=== PATIENT | female | born 1940 ===

== ENCOUNTER 2023-06-05 16:02 | Emergency (ER) | payer OTHER ==
[2023-06-05] MEDS ORDERED: NA CHLORIDE 0.9% 1,000 ML ONE ×2 (16:49→21:16)
[2023-06-05] MEDS ORDERED: ONDANSETRON 4 MG/2 ML VIAL ONE ×2 (16:57→21:16)
--- OUTSIDE RECORDS SUMMARY | 2023-06-05 17:07 | XMS REPORT | Continuity of Care Document ---
:1940 Author Organization [facility] t Address [address] [place] [address] [place] [id number] Care Team Providers Name Role Phone Unavailable Unavailable Unavailable Payers Payer Name Policy Type Policy Number Effective Date Expiration Date S ource Problems This patient has no known problems. Allergies, Adverse Reactions, Alerts Allergy Allergy Status Severity Reaction(s) Onset Inactive Treating Comm ents Source Name Type Date Date Clinician benny DA Active U [facility] 07-23 Mahendra 00:00: d 00 [facility] Medications This patient has no known medications. Procedures This patient has no known procedures. Results Test Description Test Time Test Comments Results Result Comments Source SURG 2019-07-26 16:18:00 RUN DATE: 07/26/19 [facility] Luiz [place] - LAB PAGE 1 RUN TIME: 1618 Specimen Inquiry RUN USER: INTERFACE PATIENT: ALANNA KIRAN LOC: IDA U #: [id number] AGE/SX: 79/F ROOM: RE07/25/19[facility] DR: Gianfranco Guadarrama MD : 42 BED: DIS: STATUS: [facility] TLOC: SPEC #: [id number] RECD: 07/25/19 STATUS: [facility] #: [id number] LOIS: 07/25/19 [facility] DR: Gianfranco Guadarrama MD ENTERED: 07/25/19 SP TYPE: SURG OTHR DR: Jayesh Hansen Jr, MD ORDERED: SURG PATH LVL 4 COPIES TO: Jayesh Hansen Jr, MD [address] [place] [address] [address] [place] [address] Gianfranco Guadarrama MD [address] [place] [address] HISTOLOGY: TISSUE ID BLK PCS MARY BETH LEV PROCEDURE DISPOSITION ____ ___ ___ ___ VULVA, NOS A 1 1 PROCEDURES: SURG PATH LVL 4 (07/25/19) TISSUES: A. 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 Received in formalin is a ireland-brown shave biopsy specimen, 0.2 x 0.1 x less than 0.1 cm. On the surface there is a ireland lesion, 0.3 x 0.1 cm, closely abuts from peripheral margin. The resection margin is inked blue. The entire specimen submitted as A. tarun/nr CONTINUED ON NEXT PAGE RUN DATE: 07/26/19 [facility] PAGE 2 RUN TIME: 1618 Specimen Inquiry RUN USER: INTERFACE SPEC #: [facility]:[id number] PATIENT: ALANNA KIRAN #[id number] (Continued)--------- --- GROSS DESCRIPTION (Continued) Grossing performed at [facility] Pathology, [address] [facility], [address], [place], [place] [address]. [employer] Panels Trimmer: Mitchel Ferraro M.D. MICROSCOPIC DESCRIPTION Vulva. Sections demonstrate soft tissue with chronic inflammation. No definite mucosal surface is identified. The specimen has the appearance of a segment of soft tissue with denuded mucosa. No dysplasia or malignancy is identified.--------- --- Signed SIGNATURE ON FILE Jimmy Kaur 07/26/19 1618 END OF REPORT BASIC METABOLIC PANEL 2019-07-23 11:34:00 Test Item Value Reference Range Interpretation Comme nts SODIUM (test code = NA) 141 mmol/L 134-147 N POTASSIUM (test code = K) 3.8 mmol/L 3.4-5.0 N CHLORIDE (test code = CL) 107 mmol/L 100-108 N CARBON DIOXIDE (test code = CO2) 29 mmol/L 21-32 N ANION GAP (test code = GAP) 5.0 GAP calc 4.0-15.0 N GLUCOSE (test code = GLU) 85 MG/DL 70-110 N BLOOD UREA NITROGEN (test code = BUN) 12 MG/DL 7-18 N GLOMERULAR FILTRATION RATE (test code = GFR) >=60 max estimate estG FR >60 CREATININE (test code = CREAT) 0.8 MG/DL 0.6-1.0 N CALCIUM (test code = CA) 8.8 MG/DL 8.5-10.1 N BASIC METABOLIC [id number] 11:31:00 Test Item Value Reference Range Interpretation Comments SODIUM (test code = NA) 141 mmol/L 134-147 N POTASSIUM (test code = K) 3.8 mmol/L 3.4-5.0 N CHLORIDE (test code = CL) 107 mmol/L 100-108 N CARBON DIOXIDE (test code = CO2) 29 mmol/L 21-32 N ANION GAP (test code = GAP) 5.0 GAP calc 4.0-15.0 N GLUCOSE (test code = GLU) 85 MG/DL 70-110 N BLOOD UREA NITROGEN (test code = 12 MG/DL 7-18 N BUN) GLOMERULAR FILTRATION RATE (test estGFR >60 code = GFR) CREATININE (test code = CREAT) MG/DL 0.6-1.0 CALCIUM (test code = CA) 8.8 MG/DL 8.5-10.1 N CBC W/AUTO [id number] 11:24:00 Test Item Value Reference Range Interpretation Comments WHITE BLOOD CELL (test code = 6.0 K/mm3 3.5-11.0 N WBC) RED BLOOD CELL (test code = RBC) 4.32 M/mm3 4.70-6.10 L HEMOGLOBIN (test code = HGB) 12.9 G/DL 10.4-14.9 N HEMATOCRIT (test code = HCT) 39.3 % 31.5-44.1 N MEAN CELL VOLUME (test code = 91.0 Fl 84.5-98.6 N MCV) MEAN CELL HGB (test code = MCH) 29.9 pg 27.0-34.2 N MEAN CELL HGB CONCETRATION (test 32.8 G/DL 31.5-34.0 N code = MCHC) RED CELL DISTRIBUTION WIDTH (test 13.4 SD 11.5-14.5 N code = RDW) PLATELET COUNT (test code = PLT) 226.0 K/mm3 150-450 N MEAN PLATELET VOLUME (test code = 9.10 fL 7.0-10.5 N MPV) NEUTROPHIL % (test code = NT%) 69.5 % 40-76 N LYMPHOCYTE % (test code = LY%) 19.2 % 20.5-51.1 L MONOCYTE % (test code = MO%) 8.8 % 1.7-9.3 N EOSINOPHIL % (test code = EO%) 2.2 % 0.0-6.0 N BASOPHIL % (test code = BA%) 0.3 % 0.0-2.0 N NEUTROPHIL # (test code = NT#) 4.16 K/mm3 1.8-7.6 N LYMPHOCYTE # (test code = LY#) 1.2 K/mm3 0.6-3.2 N MONOCYTE # (test code = MO#) 0.5 K/mm3 0.3-1.1 N EOSINOPHIL # (test code = EO#) 0.1 K/mm3 0.0-0.4 N BASOPHIL # (test code = BA#) 0.0 K/mm3 0.0-0.1 N MANUAL DIFF REQUIRED (test code = NO DIFF/SCN CRITERIA MDLUIS FERNANDO) Notes Date/Time Note Provider Source 2019-07-25 09:19:00-00:00 [facility] ([facility]) Post Anesthesia Evaluation REPORT#:[id number] REPORT STATUS: Signed DATE:07/25/19 TIME:918 PATIENT: ALANNA KIRAN UNIT #: [id number] ROOM/BED: : 42 AGE: 79 SEX: F ATTEND: Mauricio Guadarrama MD ADM AUTHOR: Lisa Plunkett CRNA * ALL edits or amendments must be made on the [employer]/computer document * Post Anesthesia Evaluation Anes. changes from pre-op eval ORM Surgeries: Surgery Date and Time: 07/25/2019 08 Primary Procedure: VAGINOSCOPY Secondary Procedures: SIMPLE VULVECTOMY CYSTOSCOPY Anesthetic: general LMA Date: 07/25/19 Level of consciousness: no change, patient awake , able to answer questions, participate in this eval. Vital signs: BP: [ ] HR: [ ] bpm RR: [ ] / min SP02: [ ] %Vital Signs: Date Time Temp Pulse Resp B/P B/P Pulse O2 O2 F low FiO2 Mean Ox Delivery Rate 07/25 0910 76 8 137/64 90 Room air 07/25 0905 89 17 146/61 95 Room air 07/25 0900 90 22 112/56 93 Room air 07/25 0855 36.9 83 8 120/56 99 Room air 10.0000 00 07/25 0845 84 2 115/56 98 Simple 10.661623 mask 07/25 0843 Simple 10.342026 mask 07/25 0840 80 0 115/56 95 Simple 10.341557 mask 07/25 0837 36.9 87 12 118/58 97 Simple 10.75154 0 mask 07/25 0643 36.8 62 16 142/69 98 Room air Cardiovascular: no change, CV system stable, vit al signs stable Respiratory/Airway: respiratory system stable, m aintains without support Pain: adequately controlled Hydration: adequate Temp status: normothermic Presence of N/V: no Anesthesia complications: no Other changes requiring f/u: none Conclusions: no apparent anes. 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 POSTOPERATIVE DIAGNOSES: Lichen planus of the vu lva L43.0, mixed urinary incontinence N39.46. PROCEDURES: Simple vulvectomy 65251, vaginoscopy 15969, cystoscopy 91975. SURGEON: Gianfranco Guadarrama MD CAFETERIA COOK: Kerrie Haines, licensed first grade teacher. ANESTHESIA: LMA biopsy vulva. COMPLICATIONS: None. DRAINS: None. ESTIMATED BLOOD LOSS: None. FLUIDS: 500 mL of crystalloid. URINE OUTPUT: 100 mL. FINDINGS: Completely closed introitus with separ ation and initial vaginal length 1 cm, final vaginal length 4 cm. No bleed ing or hematoma formation. Normal cystoscopy, vaginoscopy showing no suspic ious malignant findings. PROCEDURE IN DETAIL: The patient was taken to e operating room where LMA anesthesia was found to be adequate. She was pre pped and draped in normal sterile technique after being placed in dorsal l ithotomy position in Jarred stirrups by mi. SCDs were activated prior to ind uction. Pinpoint opening was identified and wit h a hemostat allowing for opening of the introitus, then identification of a significantly s hortened vagina of 1 cm. Bovie cautery was then used to open the va ginal epithelium and extension of the length of the vagina with blunt dissection . Cystoscopy was then performed showing no urethral or bladder issues. Multiple photos taken. Vagino scopy was performed at that time showing no suspicious malignant issues. Cys toscopy and vaginoscopy were performed with magnifying lens. The simple vulve ctomy was performed by extending the skin incision for the opening of the vagina with removal of tissue PATIENT NAME: ALANNA KIRAN for surgical specimen. Bovie cautery was used to maintain hemostasis. The surgical site was irrigated and aspirated. There was no bleeding or hematoma formation. Sponge, instrument, and needle count correct x3. The patient was reversed from anesthesia and transferred to the postanesthesia care unit in stable condition. Dictated By: Gianfranco Guadarrama MD WT: OP:ANA MARIA/PAULINE/ELIE Conf#: [id number]/DID#: [id number] Authenticated by Gianfranco Guadarrama MD On 07/03 03:59:03 PM at 1559 PATIENT NAME: ALANNA KIRAN 2019-07-25 08:30:00-00:00 [facility] ([facility]) Brief Op Note REPORT#:[id number] REPORT STATUS: Signed DATE:07/25/19 TIME:829 PATIENT: ALANNA KIRAN UNIT #: [id number] ROOM/BED: : 42 AGE: 79 SEX: F ATTEND: Vel Guadarrama MD ADM AUTHOR: Gianfranco Guadarrama MD * ALL edits or amendments must be made on the [employer]/computer document * Op/Inv Proc Note - Brief Pre-procedure diagnosis: lichen planus vulva, mixed urinary incontinence Post-procedure diagnosis: same as pre procedure dx (same) Procedures performed: simple vulvectomy, cystoscopy, vaginoscopy Primary Surgeon: gurwinder Courtesy Driver(s): rupa haines lfa Findings: nl cystoscopy and vaginoscopy, 1 cm vaginal jacey th extended to 4 cm Complications: none Estimated blood loss in ml's: none Specimens removed/altered: vulvar skin Drain(s): None Tube(s): none Implant(s): none Fluids: 500cc Urine output: 100cc Approach: vaginal at 0833 [facility] #: [id number] END OF REPORT 2019-07-24 13:24:00-00:00 [id number] [facility] [address] [place] [address] PATIENT NAME: ALANNA KIRAN ADMIT DATE: 07/25/19 ACCOUNT NO: [id number] ROOM NO: AGE: 79 REPORT TYPE: PREOP HP REPORT SEX: F ADMITTING PHYSICIAN: ATTENDING PHYSICIAN: Gianfranco Guadarrama MD ADMISSION DATE: 07/25/2019 DATE OF PLANNED PROCEDURE: 07/25/2019 PREOPERATIVE DIAGNOSES: 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 Mixed urinary incontinence, N39.46. Her planned procedure will be simple vulvectomy, [address]30; cystoscopy, 84144; vaginoscopy 30311. CHIEF COMPLAINT: Leakage of urine. HISTORY OF PRESENT ILLNESS: The patient was referred to me by Dr. Issa with a history of lichen planus causing complete fusi on of her vulva with lower urinary tract symptoms, to i nclude dysuria, vulvar burning, constant leakage of urine with both stress, urge, and overflow issue s. She reports multiple treatments for her lichen planus and atrophy wit hout significant improvement, and was requesting surgical intervention. PAST MEDICAL HISTORY: Depression and the previou sly stated gynecological conditions. PAST SURGICAL HISTORY: Inclu matilde hysterectomy, bladder suspension, appendectomy. HABITS: She has never been a smoker. She does no t use alcohol or illicit drugs. ALLERGIES: LISINOPRIL. MEDICATIONS ON ADMISSION: Biotin 10 mg tablet da james, magnesium 300 mg tablet taken daily, Celexa 40 mg tablet 1/2 daily, Sing ulair 5 mg tablet daily. REVIEW OF SYSTEMS: CONSTITUTIONAL: Denies weight change, lethargy, or fatigue. HEENT: Denies head, ears, eyes, nose, or throat concerns. PULMONARY: Denies coughing, wheezing, or shortne ss of breath. CARDIOVASCULAR: Denies chest pain, palpitations, or irregular heartbeat. GASTROINTESTINAL: Denies nausea, vomiting, diarr hea, or constipation. MUSCULOSKELETAL: Denies aches or pains in distal muscle or joints. NEUROLOGIC: Denies weakness, numbness, dizziness , or other deficit. PSYCHOLOGICAL: Denies anxiety or depression. PATIENT NAME: ALANNA KIRAN PHYSICAL EXAMINATION: GENERAL: She appears stated age, in no apparent distress. She is a good historian. She is 63 inches tall and she weighs 136 pounds giving her BMI of 24. VITAL SIGNS: Blood pressure 165/78, heart rate 7 8. HEENT: Normocephalic and atraumatic. CHEST: Clear to auscultation bilaterally. HEART: S1, S2, and regular. ABDOMEN: Soft, nontender. EXTREMITIES: Normal motor function and tone. NEUROLOGIC: Intact. PSYCHOLOGICAL: No anxiety or depression. PELVIC: She had complete fusion of her labia min ora with a pinpoint opening with the urine leaking from the pinpoint opening. The external urethral meatus was not visible. Vaginal exam could not be perfo rmed secondary to fusion. LABORATORY DATA: Preoperative laboratory evaluat ion dated 07/23/2019; sodium 141, potassium 3.8, chloride 107, carbon dioxide 29, glucose 85, and creatinine 0.8, and calcium 8.8. WBC 6.0, hemoglobin 12.9, hematocrit 39.3, and platelet count 226. IMPRESSION: Previously stated lichen planus with complete fusion of the labia with lower urinary tract sym ptoms, for partial simple vulvectomy cystoscopy and vaginoscopy. The patient understood risks, benef its, and limitations and that it would be an outpatient procedure. Dictated By: Gianfranco Guadarrama MD WT: PREOPHP:ANA MARIA/PAULINE/ELIE Conf#: [id number]/DID#: [id number] Authenticated by Gianfranco Guadarrama MD On 07/03 03:59:01 PM at 1559 PATIENT NAME: ALANNA KIRAN
[2023-06-05] MEDS ORDERED: PROMETHAZINE INJ 25 MG/ML AMP ONE (17:17)
[2023-06-05] MEDS ORDERED: MORPHINE 4 MG/ML SYR ONE (17:17)
[2023-06-05 17:23] LABS: Absolute Lymphocytes (CBC) 0.7 K/uL (0.7-4.9); Hematocrit 26.4 % (36.0-45.0); Lymphocytes % 4.1 % (15.3-44.8); MCV 97.2 fL (80-100); MPV 7.9 fL (7.6-11.3); Platelets 343 thou/uL (152-406); RBC Red Blood Cell Count 2.72 M/uL (3.86-4.86)
--- NOTE | 2023-06-05 17:33 | RAD REPORT ---
EXAM DESCRIPTION: RAD - Hip Left 2 View - 06/05/2023 5:07 pm CLINICAL HISTORY: Left hip pain FINDINGS: No fracture or dislocation is seen. Bones appear osteoporotic. If the patient has clinical symptoms to suggest an occult fracture MRI wou ld be recommended
--- NOTE | 2023-06-05 17:33 | RAD REPORT ---
EXAM DESCRIPTION: RAD - Knee Left 3 View - 06/05/2023 5:07 pm CLINICAL HISTORY: Left knee pain FINDINGS: No fracture or dislocation is seen. Marked anterior soft tissue swelling
--- NOTE | 2023-06-05 17:35 | RAD REPORT ---
EXAM DESCRIPTION: Michael Single View06/05/2023 5:07 pm CLINICAL HISTORY: Chest pain COMPARISON: 2017 FINDINGS: Nodular opacity overlies the mid to lower left lung. The remainder of the lungs appear clear of acute infiltrate. The heart is normal size IMPRESSION: Nodular opacity overlies the mid to lower left lung. This may represent a nipple shadow or pulmonary nodule. Frontal and oblique views of the chest with left nipple marker recommended for f urther evaluation
--- NOTE | 2023-06-05 17:42 | RAD REPORT ---
EXAM DESCRIPTION: CT - Head Brain Wo Cont - 06/05/2023 5:18 pm CLINICAL HISTORY: Vertigo COMPARISON: None TECHNIQUE: Computed axial tomography of the head was obtained. IV contrast was not requested. All CT scans are performed using dose optimization technique as appropriate and may include automated exposure control or mA/KV adjustment according to patient size. FINDINGS: An intracranial bleed is not seen The ventricles are normal in caliber No extra-axial fluid collection is noted. Mild low-density areas within periventricular, deep and subcortical white matter likely represent isc hemic changes secondary to small vessel disease. Fluid within the sinuses/ mastoids is not seen. IMPRESSION: No acute intracranial abnormality is seen If patient's symptoms persist MRI of the brain would be recommended
[2023-06-05 18:03] LABS: AST/SGOT 9 U/L (15-37); Alkaline Phosphatase 81 U/L (45-117); BUN Blood Urea Nitrogen 26 mg/dL (7-18); Bicarbonate 19 mEq/L (21-32); Bilirubin Direct 0.2 mg/dL (0-0.2); Bilirubin Indirect, Calculated 0.6 mg/dL (0.2-0.8); Bilirubin Total 0.8 mg/dL (0.2-1.0); Glomerular Filtration Rate 29 ml/min (=/>90); Glucose Level 208 mg/dL (74-106); Magnesium 2.2 mg/dL (1.6-2.4); NT PRO-BNP 585 pg/mL (<450); Potassium 4.1 mEq/L (3.5-5.1); Protein, Total 6.3 g/dL (6.4-8.2); Sodium Level 141 mEq/L (136-145); Troponin High Sensitivity 19.5 pg/mL (<58.9)
[2023-06-05 18:11] LABS: Blood Morphology Comment NOT SEEN (NOT SEEN); Platelet Estimate ADEQ; White Blood Cell Scan OK (OK)
[2023-06-05 18:12] LABS: Protime INR 1.59
[2023-06-05] MEDS ORDERED: LIDOCAINE 1% MPF 5 ML VIAL ONE (18:39)
[2023-06-05 18:40] LABS: ALT/SGPT < 10 U/L (13-56)
[2023-06-05] MEDS ORDERED: CEFEPIME 2 GM VIAL ONE (20:15)
[2023-06-05] MEDS ORDERED: NA CHLORIDE 0.9% 100 ML ONE (20:15)
[2023-06-05] MEDS ORDERED: VANCOMYCIN 1 GM/VIAL ONE (20:15)
[2023-06-05] MEDS ORDERED: NA CHLORIDE 0.9% 250 ML ONE (20:15)
[2023-06-05 20:49] LABS: Specific Gravity > 1.030 (1.005-1.030); Urine Bacteria None Seen /HPF (<20); Urine Bilirubin NEGATIVE (Negative); Urine Blood Negative (Negative); Urine Clarity Extremely Turbid (Clear); Urine Color Yellow (Yellow); Urine Glucose NEGATIVE (Negative); Urine Mucus Slight /HPF (None Seen); Urine Protein 1+ (Negative); Urine RBC <5 /HPF (None Seen); Urine Urobilinogen Normal (Normal); Urine pH 5.5 (5.0-7.0)
[2023-06-05] MEDS ORDERED: MORPHINE 2 MG/ML SYR ONE (21:16)
--- NOTE | 2023-06-05 22:26 | RAD REPORT ---
EXAM DESCRIPTION: USExtremity Venous Uni Ltd06/05/2023 9:52 pm CLINICAL HISTORY: left leg swelling COMPARISON: None FINDINGS: Left common femoral, superficial femoral, greater saphenous, popliteal and posterior tibi al veins are compressible and demonstrate augmentation. Doppler demonstrates good flow. Grayscale, color and spectral analysis performed on all vessels IMPRESSION: No evidence of deep venous thrombosis involving the left lower extremity.
--- NOTE | 2023-06-05 22:37 | RAD REPORT ---
EXAM DESCRIPTION: US - Extremity Nonvascular Limited - 06/05/2023 9:52 pm CLINICAL HISTORY: Left knee swelling FINDINGS: 2.2 centimeter fluid collection anterior left knee. Increased vascularity is not noted. Small knee joint effusion is present IMPRESSION: 2.2 centimeter fluid collection anterior left knee probably is superficial to the joint. This may represent bursitis or hematoma within the subcutaneous tissues Small joint effusion is present If the patient's symptoms do not improve then further imaging with CT or MRI would be recommended
--- NOTE | 2023-06-05 23:04 | ER ---
Nurse's Notes [facility] Name: Dasha Amaro Age: 83 yrs Sex: Female : 1940 Arrival Date: 06/05/2023 Time: 16:02 Bed 16 Private MD: Diagnosis: Sepsis, unspecified organism;Left knee pain and swelling, left knee hematoma, left septic knee Presentation: 06/05 16:10 Chief complaint: EMS states: called for increased pain and bruising to left knee and ko1 patient seemed much more withdrawn than usual. 16:10 Method Of Arrival: EMS: [facility] ko1 16:10 Coronavirus screen: At this time, the client does not indicate any symptoms associated ko1 with coronavirus-19. Ebola Screen: No symptoms or risks identified at this time. Initial Sepsis Screen: Does the patient meet any 2 criteria? No. Patient's initial sepsis screen is negative. Does the patient have a suspected source of infection? No. Patient's initial sepsis screen is negative. Risk Assessment: Do you want to hurt yourself or someone else? Patient reports no desire to harm self or others. Onset of symptoms was June 05, 2023. 16:10 Acuity: MACEY 3 ko1 Triage Assessment: 16:10 General: Appears in no apparent distress. ill, slender, Behavior is cooperative, flat, ko1 quiet. Pain: Complains of pain in left knee. Historical: - Allergies: 18:08 No Known Allergies; ko1 - Home Meds: 18:08 Celexa Oral [Active]; ko1 - PMHx: 18:08 Depression; LICHEN PLANUS; ko1 - Immunization history:: Adult Immunizations unknown. - Social history:: Smoking status: Patient denies any tobacco usage or history of. - Family history:: not pertinent. Screenin:15 [facility] ED Fall Risk Assessment (Adult) History of falling in the last 3 months, ko1 including since admission Yes- fall prone (multiple falls) (3 pts) Confusion or Disorientation Yes (5 pts) Intoxicated or Sedated No (0 pts) Impaired Gait Yes (1 pt) Mobility Assist Device Used Yes (1 pt) Altered Elimination No (0 pt) Score/Fall Risk Level 3 or more points = High Risk Oriented to surroundings, Maintained a safe environment, Educated pt \T\ family on fall prevention, incl call for assistance when getting out of bed, Assessed \T\ reinforced patient's understanding of fall precautions, Provided non-skid footwear, Hourly rounding (assess needs \T\ fall precautionary measures) done, Used ambulatory aids as needed (educated on \T\ assisted with), Used gait belt as appropriate Implemented a Fall Risk Plan of Care, Remained w/in arm's length of patient and in sight while toileting, Offered frequent toileting (1:1 observation), Remained with patient while ambulating, Utilized family, sitter, or virtual hosiery pairer as indicated. Abuse screen: Denies threats or abuse. Denies injuries from another. Nutritional screening: No deficits noted. Tuberculosis screening: No symptoms or risk factors identified. Assessment: 16:10 Neuro: Level of Consciousness is awake, alert, obeys commands. Cardiovascular: Rhythm ko1 is sinus tachycardia. Respiratory: No deficits noted. GI: Parent/caregiver reports the patient having nausea. : No deficits noted. EENT: No deficits noted. Derm: Bruising that is dark purple, brown, green, yellow, on left leg, knee, left side of face, left arm, left side. Musculoskeletal: Parent/caregiver report the patient having falling more. 06/06 00:00 Reassessment: Patient and/or family updated on plan of care and expected duration. Pain ha1 level reassessed. Patient is alert, oriented x 3, equal unlabored respirations, skin warm/dry/pink. 01:00 General: Appears uncomfortable, Behavior is calm, cooperative. Pain: Complains of pain ha1 in left leg Pain does not radiate. Pain currently is 9 out of 10 on a pain scale. Aggravated by increased activity. Neuro: Level of Consciousness is awake, alert, obeys commands, Oriented to person, place, time, situation. Cardiovascular: Heart tones S1 S2 present Capillary refill < 3 seconds. Respiratory: Airway is patent Respiratory effort is even, unlabored, Respiratory pattern is regular, symmetrical. Musculoskeletal: Swelling present in left knee Reports pain in left knee. 02:00 Reassessment: Patient and/or family updated on plan of care and expected duration. Pain ha1 level reassessed. Patient is alert, oriented x 3, equal unlabored respirations, skin warm/dry/pink. 03:00 Reassessment: Patient and/or family updated on plan of care and expected duration. Pain ha1 level reassessed. Patient is alert, oriented x 3, equal unlabored respirations, skin warm/dry/pink. 03:00 Reassessment: at bedside. ha1 04:00 Reassessment: Patient and/or family updated on plan of care and expected duration. Pain ha1 level reassessed. Patient is alert, oriented x 3, equal unlabored respirations, skin warm/dry/pink. 06/07 04:05 Reassessment: Late Note.06/05/20231999 Notified Dr. Salvador of elevated heart rate. pt. ha1 respirations even and equal. appears in no distress. 04:10 Reassessment: late note 06/05/20232099. updated patient and family about the need for ha1 transfer. pt. appear in no distress. respirations even and equal. Vital Signs: 06/05 16:10 BP 113 / 65; Pulse 118; Resp 18; Temp 99; Pulse Ox 100% on R/A; ko1 17:30 BP 117 / 64; Pulse 116; Resp 18; Pulse Ox 99% ; ko1 18:00 BP 117 / 65; Pulse 125; Resp 16; Pulse Ox 99% ; ko1 19:00 BP 127 / 73; Pulse 100; Resp 18 S; Pulse Ox 98% on R/A; ha1 20:00 BP 120 / 52; Pulse 115; Resp 18; Pulse Ox 96% on R/A; ha1 21:00 BP 126 / 52; Pulse 106; Pulse Ox 95% on R/A; ha1 22:00 BP 120 / 55; Pulse 122; Resp 15 S; Pulse Ox 94% on R/A; ha1 23:00 BP 111 / 51; Pulse 112; Resp 15 S; Temp 98.2; Pulse Ox 94% on R/A; ha1 0807 01:00 BP 109 / 58; Pulse 112; Resp 18 S; Pulse Ox 97% on R/A; ha1 02:00 BP 113 / 54; Pulse 110; Resp 19 S; Pulse Ox 98% on R/A; ha1 03:00 BP 110 / 71; Pulse 109; Resp 20 S; Pulse Ox 98% on R/A; ha1 04:00 BP 111 / 63; Pulse 106; Resp 17 S; Pulse Ox 98% on R/A; ha1 ED Course: 06/05 16:07 Patient arrived in ED. eb 16:07 Vipin Bailon MD is Attending Physician. rt 16:10 Arm band placed on right wrist. Patient placed in an exam room, in the treatment room, ko1 on a stretcher, on monitor car operator, on pulse oximetry, Patient notified of wait time. 16:15 Maintain EMS IV. Dressing intact. Site clean \T\ dry. Gauge \T\ site: 22 left FA. Flushed ko 1 left forearm with 5 ml normal saline. Patient maintains SpO2 saturation greater than 95% on room air. 16:15 Patient has correct armband on for positive identification. Bed in low position. Call ko1 light in reach. Side rails up X2. Adult w/ patient. Provided Education on: NA. Client placed on continuous cardiac and pulse oximetry monitoring. NIBP monitoring applied. teletypesetter monitor on. Door closed. Noise minimized. Lights dimmed. Warm blanket given. 16:18 Therese Da Silva, RN is Primary Nurse. ko1 17:09 XRAY Chest (1 view) In Process Unspecified. EDMS 17:09 Knee Left 3 View XRAY In Process Unspecified. EDMS 17:09 Hip Left 2 View XRAY In Process Unspecified. EDMS 17:13 Basic Metabolic Panel Sent. ko1 17:13 CBC with Diff Sent. ko1 17:13 LFT's Sent. ko1 17:13 Magnesium Sent. ko1 17:13 NT PRO-BNP Sent. ko1 17:13 PT-INR Sent. ko1 17:13 Troponin HS Sent. ko1 17:20 CT Head Brain wo Cont In Process Unspecified. EDMS 17:45 Blood Culture Adult (2) Sent. ko1 17:45 Inserted saline lock: 22 gauge in left antecubital area, using aseptic technique. ko1 17:52 CBC Smear Scan Sent. ko1 18:08 Triage completed. ko1 18:38 CRP Sent. ko1 19:05 Attending Physician role handed off by Vipin Bailon MD sp4 19:05 Meliton Mcintosh MD is Attending Physician. sp4 19:45 Yan cath inserted, using sterile technique, 16 Fr., by mn, balloon inflated, to ha1 gravity drainage, urine specimen collected. Patient tolerated well. 20:35 UAM Sent. ha1 20:35 Blood Culture Adult (2) Sent. ha1 21:54 US Extrmty Nonvasular Limited In Process Unspecified. EDMS 21:54 Extremity Venous Uni Ltd US In Process Unspecified. EDMS 22:50 Attempted to Initiate transfer with [facility], No Answer. rv1 22:54 Attempted to initiate transfer with [facility], No Answer. rv1 23:12 Attempted to initiate transfer with [facility], No Answer. rv1 23:24 Initiated transfer with [facility] at [facility] rv1 06/06 00:51 SARS RAPID Sent. rv1 00:51 Lactate w/ 2H reflex if indic. Sent. rv1 01:05 SARS RAPID Sent. rv1 01:05 Lactate w/ 2H reflex if indic. Sent. rv1 02:38 Pt accepted to [facility] by Dr. Madden to [address] [place] [address] Rm [id number]. rv1 04:25 No provider procedures requiring assistance completed. ha1 04:25 Patient transferred, IV remains in place. ha1 Administered Medications: 06/05 16:53 Drug: NS 0.9% IV 1000 ml Route: IV; Rate: 1000 ml; Site: left forearm; ko1 18:57 Drug: Lidocaine Infiltration (1 %) 5 ml {Note: given by Dr Bailon.} Volume: 5 ml; ko1 Route: Infiltration; 20:20 Drug: Cefepime IVPB 2 grams Route: IVPB; Rate: 200 ml/hr; Infused Over: 30 mins; Site: [facility] left forearm; 21:06 Drug: Ondansetron IVP 4 mg Route: IVP; Site: left forearm; ha1 21:06 Drug: NS 0.9% IV 1000 ml Route: IV; Rate: 125 ml/hr; Site: left forearm; ha1 21:09 Drug: morphine IVP or IV 2 mg Route: IVP; Infused Over: 4 mins; Site: left forearm; ha1 21:11 Drug: vancoMYCIN IVPB 1 grams Route: IVPB; Infused Over: 2 hrs; Site: left forearm; ha1 06/06 01:45 Drug: Cefepime IVPB 2 grams Route: IVPB; Rate: 200 ml/hr; Infused Over: 30 mins; Site: ha1 left forearm; 02:20 Follow up: Response: No adverse reaction ha1 02:18 Drug: vancoMYCIN IVPB 1 grams Route: IVPB; Infused Over: 2 hrs; Site: left forearm; ha1 03:00 Follow up: Response: No adverse reaction; IV Status: Completed infusion; IV Intake: ha1 250ml 02:37 Drug: NS 0.9% IV 1000 ml Route: IV; Rate: 1 bolus; Site: left forearm; ha1 02:46 Drug: Albumin IVPB 25 grams Volume: 100 ml; Route: IVPB; Site: left forearm; ha1 03:00 Follow up: Response: No adverse reaction ha1 02:46 Drug: Albumin IVPB 25 grams Volume: 100 ml; Route: IVPB; Site: left forearm; ha1 03:00 Follow up: Response: No adverse reaction ha1 Medication: 04:20 VIS not applicable for this client. ha1 Intake: 03:00 IV: 250ml; Total: 250ml. ha1 Outcome: 06/05 23:04 ER care complete, transfer ordered by . sp4 06/06 04:20 Transferred by ground EMS to [facility]. ha1 Condition: stable Discharge instructions given to patient, family, Instructed on the need for transfer, Demonstrated understanding of instructions. 04:25 Patient left the ED. ha1 Signatures: Dispatcher [employer] EDMS Yasmin Perez Heidy, RN RN ha1 Therese Da Silva RN RN ko1 Vipin Bailon MD MD rt Villegas, Rebecca rv1 Meliton Mcintosh MD MD sp4 Corrections: (The following items were deleted from the chart) 06/05 23:18 23:16 Attempted to Initiate transfer with [facility], No Answer. rv1 rv1 06/06 19:07 19:06 Response: No adverse reaction; IV Status: Completed infusion; IV Intake: 250ml ha1ha1 06/07 00:55 06/06 19:10 General: Appears uncomfortable, Behavior is calm, cooperative, ha1 ha1 06/07 00:55 06/06 19:10 Pain: Complains of pain in left leg Pain does not radiate. Pain currently ha1 is 9 out of 10 on a pain scale. Aggravated by increased activity, ha1 06/07 00:55 06/06 19:10 Neuro: Level of Consciousness is awake, alert, obeys commands, Oriented to ha1 person, place, time, situation, ha1 06/07 00:06/06 19:10 Cardiovascular: Heart tones S1 S2 present Capillary refill < 3 seconds ha1 ha1 06/07 00:06/06 19:10 Respiratory: Airway is patent Respiratory effort is even, unlabored, ha1 Respiratory pattern is regular, symmetrical, ha1 06/07 00:06/06 19:10 Musculoskeletal: Swelling present in left knee Reports pain in left knee ha11 06/07 04:10 04:05 Reassessment: Late Note. [address] Salvador of elevated heart rate. [facility] 1 04:15 04:10 Reassessment: late note 06/05/2023 2100. updated patient and family about the need ha1 for transfer. pt. appear in no distress. respirations even and equal. ha1
--- NOTE | 2023-06-05 23:04 | EDPHYS ---
Physician Documentation [facility] Name: Dasha Amaro Age: 83 yrs Sex: Female : 1940 Arrival Date: 06/05/2023 Time: 16:02 Bed 16 Private MD: ED Physician Meliton Mcintosh HPI: 06/05 17:51 This 83 yrs old Female presents to ER via Unassigned with complaints of Confusion, left rt knee pain. 17:51 Patient presents to the ED with reported confusion, being more withdrawn. Patient is rt essentially nonverbal at baseline per , however, he states that she has been less interactive. States that the patient has had a few falls recently, complains that there is a pain and worsening swelling with bruising to the left knee. Denies fever, chills. No further history could be obtained. Symptoms are moderate severity.. 07 02:35 Patient's Mr. Teto Amaro can be reached at [phone]. sp4 Historical: - Allergies: 06/05 18:08 No Known Allergies; ko1 - Home Meds: 18:08 Celexa Oral [Active]; ko1 - PMHx: 18:08 Depression; LICHEN PLANUS; ko1 - Immunization history:: Adult Immunizations unknown. - Social history:: Smoking status: Patient denies any tobacco usage or history of. - Family history:: not pertinent. ROS: 17:51 Unable to obtain ROS due to baseline dementia. rt 20:13 Constitutional: ROS not available secondary to dementia sp4 20:13 All other systems are negative. Exam: 17:51 ECG was reviewed by the Attending Physician. rt 17:56 Constitutional: This is a well developed, well nourished patient who is awake, alert, rt and in no acute distress. Head/Face: Normocephalic, atraumatic. Chest/axilla: Normal chest wall appearance and motion. Nontender with no deformity. No lesions are appreciated. Cardiovascular: Regular rate and rhythm with a normal S1 and S2. No gallops, murmurs, or rubs. Normal PMI, no JVD. No pulse deficits. Respiratory: Lungs have equal breath sounds bilaterally, clear to auscultation and percussion. No rales, rhonchi or wheezes noted. No increased work of breathing, no retractions or nasal flaring. Abdomen/GI: Soft, non-tender, with normal bowel sounds. No distension or tympany. No guarding or rebound. No evidence of tenderness throughout. Skin: Warm, dry with normal turgor. Normal color with no rashes, no lesions, and no evidence of cellulitis. Neuro: Awake and alert, GCS 15, oriented to person, place, time, and situation. Cranial nerves II-XII grossly intact. Motor strength 5/5 in all extremities. Sensory grossly intact. Cerebellar exam normal. Normal gait. Psych: Awake, alert, with orientation to person, place and time. Behavior, mood, and affect are within normal limits. 17:56 Musculoskeletal/extremity: Swelling and bruising noted to the left knee, no erythema, no appreciable warmth, pulses, but, sensation. Vital Signs: 16:10 BP 113 / 65; Pulse 118; Resp 18; Temp 99; Pulse Ox 100% on R/A; ko1 17:30 BP 117 / 64; Pulse 116; Resp 18; Pulse Ox 99% ; ko1 18:00 BP 117 / 65; Pulse 125; Resp 16; Pulse Ox 99% ; ko1 19:00 BP 127 / 73; Pulse 100; Resp 18 S; Pulse Ox 98% on R/A; ha1 20:00 BP 120 / 52; Pulse 115; Resp 18; Pulse Ox 96% on R/A; ha1 21:00 BP 126 / 52; Pulse 106; Pulse Ox 95% on R/A; ha1 22:00 BP 120 / 55; Pulse 122; Resp 15 S; Pulse Ox 94% on R/A; ha1 23:00 BP 111 / 51; Pulse 112; Resp 15 S; Temp 98.2; Pulse Ox 94% on R/A; ha1 0807 01:00 BP 109 / 58; Pulse 112; Resp 18 S; Pulse Ox 97% on R/A; ha1 02:00 BP 113 / 54; Pulse 110; Resp 19 S; Pulse Ox 98% on R/A; ha1 03:00 BP 110 / 71; Pulse 109; Resp 20 S; Pulse Ox 98% on R/A; ha1 04:00 BP 111 / 63; Pulse 106; Resp 17 S; Pulse Ox 98% on R/A; ha1 Procedures: 06/05 18:54 Joint Treatment: Aspiration of left knee using 18 gauge needle, Removed No fluid could rt be aspirated Dressed with band aid, Patient tolerated well. MDM: 16:09 Patient medically screened. rt 20:13 Differential Diagnosis altered mental status, sepsis, flu. Data reviewed: vital signs, 4 nurses notes, EMS record, old medical records, lab test result(s), EKG, radiologic studies, CT scan, plain films. ED course: Patient care assumed from Dr. Bailon at 7 PM. Patient is heavily demented not able to communicate her history. Patient presents with moderate swelling hematoma left knee left thigh as well. Also work-up has revealed elevated blood sugar 208, elevated creatinine 1.73, elevated white count 16.7 with neutrophil predominance, there is also elevated BNP 585, C-reactive protein is elevated, 6.11, chest x-ray revealed nodular opacity mid to lower left lung. Which may represent nipple shadow. There is no fracture or dislocation of the left knee, moderate anterior soft tissue swelling over the left knee, keep x-ray has revealed no fracture or dislocation, osteoporotic bones. CT has revealed no acute intracranial abnormality,. On exam patient appears unwell with generalized weakness, diffuse physical deconditioning muscle atrophy, moderate to severe swelling over the left knee and left lower thigh. Left knee hematoma tender to touch. Daytime provider stated that attempted left knee arthrocentesis was not successful. Patient at this time warrants admission for potential sepsis possibly infected left knee hematoma. Last thing to do would be to obtain catheterized urine for urinalysis. Exam patient is also incontinent of bowel. 23:02 ED course: There is left joint effusion/left knee 2.2 cm fluid collection anterior left sp4 knee probably superficial to the joint. This may represent bursitis or hematoma, small joint effusion, based on nonvascular ultrasound. There is also no evidence of DVT in the left lower extremity. Patient was discussed with admitting team and it was determined that patient may warrant orthopedist consult for possible left septic knee. We will pursue transfer to [facility].. 23:44 ED course: Patient was excepted by orthopedist at [facility]. 06/06 02:33 ED course: Patient was accepted into ICU by litigation partner at [address] At this time 0233 we gained acceptance . Patient's Mr. Teto mAaro can be reached at [phone] . 06/05 16:18 Order name: Basic Metabolic Panel; Complete Time: 18:52 rt 06/05 16:18 Order name: CBC with Diff; Complete Time: 18:13 rt 06/05 16:18 Order name: LFT's; Complete Time: 18:52 rt 06/05 16:18 Order name: Magnesium; Complete Time: 18:52 rt 06/05 16:18 Order name: NT PRO-BNP; Complete Time: 18:52 rt 06/05 16:18 Order name: PT-INR; Complete Time: 18:13 rt 06/05 16:18 Order name: Troponin HS; Complete Time: 18:52 rt 06/05 16:18 Order name: UAM; Complete Time: 20:59 rt 06/05 16:18 Order name: Blood Culture Adult (2) rt 06/05 17:26 Order name: CBC Smear Scan; Complete Time: 18:13 EDMS 06/05 18:23 Order name: CRP; Complete Time: 18:52 rt 06/06 00:32 Order name: Lactate w/ 2H reflex if indic.; Complete Time: 01:53 sp4 06/06 01:53 Interpretation: LAC 6.0. 4 06/06 00:32 Order name: SARS RAPID; Complete Time: 01:24 sp4 06/05 16:18 Order name: XRAY Chest (1 view); Complete Time: 17:40 rt 06/05 16:18 Order name: Knee Left 3 View XRAY; Complete Time: 17:40 rt 06/05 16:18 Order name: Hip Left 2 View XRAY; Complete Time: 17:40 rt 06/05 16:18 Order name: CT Head Brain wo Cont; Complete Time: 17:43 rt 06/05 21:00 Order name: US Extrmty Nonvasular Limited; Complete Time: 22:51 sp4 06/05 21:00 Order name: Extremity Venous Uni Ltd US; Complete Time: 22:29 sp4 06/05 16:18 Order name: EKG; Complete Time: 16:19 rt 06/05 16:18 Order name: Cardiac monitoring; Complete Time: 16:26 rt 06/05 16:18 Order name: EKG - Nurse/Tech; Complete Time: 17:12 rt 08 16:18 Order name: IV Saline Lock; Complete Time: 17:13 rt 08 16:18 Order name: Labs collected and sent; Complete Time: 17:13 rt 06/05 16:18 Order name: O2 Per Protocol; Complete Time: 16:26 rt 08 16:18 Order name: O2 Sat Monitoring; Complete Time: 16:26 rt 06/05 20:12 Order name: Yan; Complete Time: 20:35 sp4 EC/06 17:51 Rate is 121 beats/min. Rhythm is regular, Sinus tachycardia with No ectopy. QRS [place] is rt Normal. ID interval is normal. QRS interval is normal. QT interval is normal. No Q waves. Administered Medications: 16:53 Drug: NS 0.9% IV 1000 ml Route: IV; Rate: 1000 ml; Site: left forearm; ko1 18:57 Drug: Lidocaine Infiltration (1 %) 5 ml {Note: given by Dr Bailon.} Volume: 5 ml; ko1 Route: Infiltration; 20:20 Drug: Cefepime IVPB 2 grams Route: IVPB; Rate: 200 ml/hr; Infused Over: 30 mins; Site: [facility] left forearm; 21:06 Drug: Ondansetron IVP 4 mg Route: IVP; Site: left forearm; ha1 21:06 Drug: NS 0.9% IV 1000 ml Route: IV; Rate: 125 ml/hr; Site: left forearm; ha1 21:09 Drug: morphine IVP or IV 2 mg Route: IVP; Infused Over: 4 mins; Site: left forearm; ha1 21:11 Drug: vancoMYCIN IVPB 1 grams Route: IVPB; Infused Over: 2 hrs; Site: left forearm; ha1 06/06 01:45 Drug: Cefepime IVPB 2 grams Route: IVPB; Rate: 200 ml/hr; Infused Over: 30 mins; Site: ha1 left forearm; 02:20 Follow up: Response: No adverse reaction ha1 02:18 Drug: vancoMYCIN IVPB 1 grams Route: IVPB; Infused Over: 2 hrs; Site: left forearm; ha1 03:00 Follow up: Response: No adverse reaction; IV Status: Completed infusion; IV Intake: ha1 250ml 02:37 Drug: NS 0.9% IV 1000 ml Route: IV; Rate: 1 bolus; Site: left forearm; ha1 02:46 Drug: Albumin IVPB 25 grams Volume: 100 ml; Route: IVPB; Site: left forearm; ha1 03:00 Follow up: Response: No adverse reaction ha1 02:46 Drug: Albumin IVPB 25 grams Volume: 100 ml; Route: IVPB; Site: left forearm; ha1 03:00 Follow up: Response: No adverse reaction ha1 Disposition Summary: 06/05/23 23:04 Transfer Ordered Transfer Location: [facility] sp4 Reason: Higher level of care sp4 Condition: Stable sp4 Problem: new sp4 Symptoms: have improved sp4 Accepting Physician: [facility] attending(06/06/23 04:25) ha1 Diagnosis - Sepsis, unspecified organism sp4 - Left knee pain and swelling, left knee hematoma, left septic knee sp4 Forms: - Medication Reconciliation Form sp4 - SBAR form sp4 Signatures: Dispatcher [employer] EDManan Lim, ARASH-C TERRAPIN FISHER-Cla1 Renu Regan RN RN ha1 Therese Da Silva RN RN ko1 Vipin Bailon MD MD rt Meliton Mcintosh MD MD sp4 Corrections: (The following items were deleted from the chart) 04:25 06/05 23:04 [facility] attending sp4 ha1
[2023-06-06 01:07] LABS: SARS-CoV-2 Antigen Rapid Res Negative (Negative)
[2023-06-06] MEDS ORDERED: NA CHLORIDE 0.9% 250 ML ONE (01:55)
[2023-06-06] MEDS ORDERED: VANCOMYCIN 1 GM/VIAL ONE (01:55)
[2023-06-06] MEDS ORDERED: NA CHLORIDE 0.9% 100 ML ONE (01:55)
[2023-06-06] MEDS ORDERED: CEFEPIME 1 GM/VIAL ONE (01:56)
[2023-06-06] MEDS ORDERED: ALBUMIN HUMAN 25% 200 ML IV ONE (02:54)
[2023-06-06] MEDS ORDERED: NA CHLORIDE 0.9% 1,000 ML ONE (02:54)
[2023-06-06 04:56] VITALS: TEMP 98.2
[2023-06-06 04:57] VITALS: BP 110/71; O2SAT 98
--- NOTE | 2023-06-06 13:01 | EKG ---
Test Date: 2023-06-05 Test Time: 16:57:50 Hot Oiler: JOHNNIE MEASUREMENT RESULTS: Intervals: Rate: 121 MT: 160 QRSD: 74 QT: 364 QTc: 516 [place]: P: 65 MT: 160 QRS: 78 T: 58 INTERPRETIVE STATEMENTS: Sinus tachycardia Nonspecific ST abnormality Abnormal ECG Compared to ECG 06/07/2017 08:52:15 Sinus rhythm no longer present Possible ischemia no longer present Prolonged QT interval no longer present ST (T wave) deviation still present Electronically Signed On 06-06-23 12:59:16 CDT by Lawson Reed
== END 2023-06-06 04:25 | disposition short-term general hospital (02) ==
LOC: ER 16:02
PROC: 0S9D3ZX Drainage of Left Knee Joint, Percutaneous Approach, Diagnostic (ICD-10-PCS; principal; 2023-06-06)
DX: A41.9 Sepsis, unspecified organism (principal); M01.X62 Direct infection of left knee in infectious and parasitic diseases classified elsewhere; S80.02XA Contusion of left knee, initial encounter; F03.90 Unspecified dementia, unspecified severity, without behavioral disturbance, psychotic disturbance, mood disturbance, and anxiety; Z20.822 Contact with and (suspected) exposure to COVID-19
CPT/HCPCS: 96365; 93005; 87040 ×2; 85025; 81001; 80048; 36415; 83735; 85610; 80076; 83605; 84484; 83880; 86140; 70450; 71045; 73502; 73562; 93971; 76882; 51702; 96375; 99285; 87811; 10021; J2550; J2001; J0692 ×2; J2270; J2405 ×2; P9047; J7050 ×2; J7030 ×3

== ENCOUNTER 2024-08-15 11:22 | Inpatient (IN) | payer OTHER ==
[2024-08-15 12:04] LABS: Absolute Lymphocytes (CBC) 1.7 K/uL (0.7-4.9); Absolute Monocytes 0.4 K/uL (0.1-1.3); Basophils % 0.4 % (0-1.3); Eosinophils % 0.9 % (0-4.4); Hematocrit 49.1 % (36.0-45.0); Hemoglobin 16.6 g/dL (12.0-15.0); Lymphocytes % 33.1 % (15.3-44.8); MCH 33.1 pg (27.0-35.0); MCHC 33.8 g/dL (32.0-36.0); MPV 8.6 fL (7.6-11.3); Monocytes % 8.3 % (3.3-12.3); Neutrophils % 57.3 % (41.7-73.7); Nucleated Red Blood Cells % 0.1 % (0-0); Platelets 221 thou/uL (152-406); RBC Red Blood Cell Count 5.01 M/uL (3.86-4.86); Red Cell Distribution Width 12.8 % (12.1-15.2)
[2024-08-15 12:05] LABS: PT Prothrombin Time 11.2 SECONDS (9.4-12.5)
[2024-08-15] MEDS ORDERED: NA CHLORIDE 0.9% 1,000 ML ONE (12:05)
[2024-08-15] MEDS ORDERED: MAGNESIUM SULFATE 1 gm IVPB 1 GM/100 ML BAG IV ONE (12:05)
[2024-08-15] MEDS ORDERED: METOPROLOL TAR 50 MG TAB ONE (12:12)
[2024-08-15] MEDS ORDERED: METOPROLOL TARTRATE 5 MG/5 ML INJ IV ONE ×3 (12:12→12:45)
[2024-08-15 12:19] LABS: Calcium Oxalate Crystals- Ur Few /HPF (None Seen); Specific Gravity > 1.030 (1.005-1.030); Sqamous Epithelial <5 /HPF (None Seen); Transitional Epithelial <5 /HPF (None Seen); Urine Bacteria <20 /HPF (<20); Urine Bilirubin NEGATIVE (Negative); Urine Blood Negative (Negative); Urine Clarity Turbid (Clear); Urine Color Yellow (Yellow); Urine Culture Reflex Order NOT NEEDED; Urine Glucose NEGATIVE (Negative); Urine Ketones TRACE (Negative); Urine Microscopic Reflex YN ORDER UMIC; Urine Mucus 2+ /HPF (None Seen); Urine Nitrite NEGATIVE (Negative); Urine Protein 1+ (Negative); Urine Urobilinogen Normal (Normal); Urine WBC None Seen /HPF (<5); Urine pH 5.5 (5.0-7.0)
[2024-08-15 12:27] LABS: Albumin 3.6 g/dL (3.4-5.0); Albumin/Globulin Ratio 1.1 (1.1-1.8); Anion Gap 8.3 mEq/L (5.0-15.0); Bilirubin Direct 0.2 mg/dL (0-0.2); Globulin 3.3 g/dL (2.3-3.5); Magnesium 2.1 mg/dL (1.6-2.4); Potassium 3.3 mEq/L (3.5-5.1); Protein, Total 6.9 g/dL (6.4-8.2); Thyroid Stimulating Hormone 1.92 uIU/mL (0.358-3.740); Troponin High Sensitivity 23.5 pg/mL (<58.9)
[2024-08-15 12:28] LABS: Bilirubin Indirect, Calculated 0.8 mg/dL (0.2-0.8)
--- NOTE | 2024-08-15 12:55 | RAD REPORT ---
EXAMINATION: ONE VIEW CHEST XR CLINICAL INDICATION: COUGH TECHNIQUE: Frontal chest projection is submitted. Examination is limited by patient positioning and t echnique. COMPARISON: 06/05/2023 FINDINGS: The lungs are well inflated and clear. The heart is normal in size. No displaced fractures identified . IMPRESSION: No acute intrathoracic abnormalities.
[2024-08-15] MEDS ORDERED: DIGOXIN 0.25 MG/ML AMP ONE (14:08)
[2024-08-15] MEDS ORDERED: FAMOTIDINE 20 MG/2 ML VIAL IV ONE (14:08)
[2024-08-15] MEDS ORDERED: POTASSIUM 25 MEQ EFFERV TAB ONE (14:08)
[2024-08-15] MEDS ORDERED: ENOXAPARIN 60 MG/0.6 ML SQ ONE (14:09)
--- NOTE | 2024-08-15 14:12 | EDPHYS ---
Physician Documentation [facility] Name: Dasha Amaro Age: 84 yrs Sex: Female : 1940 Arrival Date: 08/15/2024 Time: 11:22 Bed 24 Private MD: ED Physician Vladimir Osorio HPI: 08/15 14:03 This 84 yrs old Female presents to ER via Ambulatory with complaints of Afib. rosa isela 14:03 The patient presents with a history of irregular heart beat, heart racing. Context: The rosa isela symptoms occur with light activity. Onset: The symptoms/episode began/occurred just prior to arrival, today. Duration: The patient or guardian reports a single episode, that is still ongoing. Modifying factors: The symptoms are aggravated by. a fib with rvr. Associated signs and symptoms: The patient has no apparent associated signs or symptoms. Onset: The symptoms/episode began/occurred 2 day(s) ago. Severity of symptoms: At their worst the symptoms were mild moderate in the emergency department the symptoms are unchanged. The patient has not experienced similar symptoms in the past. Historical: - Allergies: 11:29 No Known Allergies; ll1 - Home Meds: 19:42 Celexa Oral [Active]; tl4 - PMHx: 11:29 adhd; Anxiety; Atrial fibrillation; Dementia; Depression; hemophilia aquired; LICHEN ll1 PLANUS; Rheumatoid Arthritis; - Immunization history:: Adult Immunizations up to date. - Infectious Disease History:: Denies. - Social history:: Smoking status: Patient denies any tobacco usage or history of. - Family history:: not pertinent. ROS: 14:03 Constitutional: Negative for fever, chills, and weight loss, Eyes: Negative for injury, rosa isela pain, redness, and discharge, ENT: Negative for injury, pain, and discharge, Neck: Negative for injury, pain, and swelling, Respiratory: Negative for shortness of breath, cough, wheezing, and pleuritic chest pain, Abdomen/GI: Negative for abdominal pain, nausea, vomiting, diarrhea, and constipation, Back: Negative for injury and pain, : Negative for injury, bleeding, discharge, and swelling, MS/Extremity: Negative for injury and deformity, Skin: Negative for injury, rash, and discoloration, Neuro: Negative for headache, weakness, numbness, tingling, and seizure, Psych: Negative for depression, anxiety, suicide ideation, homicidal ideation, and hallucinations, Allergy/Immunology: Negative for hives, rash, and allergies, Endocrine: Negative for neck swelling, polydipsia, polyuria, polyphagia, and marked weight changes, Hematologic/Lymphatic: Negative for swollen nodes, abnormal bleeding, and unusual bruising, 14:03 Cardiovascular: Positive for palpitations, Exam: 14:03 Constitutional: This is a well developed, well nourished patient who is awake, alert, rosa isela and in no acute distress. Head/Face: Normocephalic, atraumatic. Eyes: Pupils equal round and reactive to light, extra-ocular motions intact. Lids and lashes normal. Conjunctiva and sclera are non-icteric and not injected. Cornea within normal limits. Periorbital areas with no swelling, redness, or edema. ENT: Nares patent. No nasal discharge, no septal abnormalities noted. Tympanic membranes are normal and external auditory canals are clear. Oropharynx with no redness, swelling, or masses, exudates, or evidence of obstruction, uvula midline. Mucous membranes moist. Neck: Trachea midline, no thyromegaly or masses palpated, and no cervical lymphadenopathy. Supple, full range of motion without nuchal rigidity, or vertebral point tenderness. No Meningismus. Chest/axilla: Normal chest wall appearance and motion. Nontender with no deformity. No lesions are appreciated. Respiratory: Lungs have equal breath sounds bilaterally, clear to auscultation and percussion. No rales, rhonchi or wheezes noted. No increased work of breathing, no retractions or nasal flaring. Abdomen/GI: Soft, non-tender, with normal bowel sounds. No distension or tympany. No guarding or rebound. No evidence of tenderness throughout. Back: No spinal tenderness. No costovertebral tenderness. Full range of motion. Female : Normal external genitalia. Skin: Warm, dry with normal turgor. Normal color with no rashes, no lesions, and no evidence of cellulitis. MS/ Extremity: Pulses equal, no cyanosis. Neurovascular intact. Full, normal range of motion. Neuro: Awake and alert, GCS 15, oriented to person, place, time, and situation. Cranial nerves II-XII grossly intact. Motor strength 5/5 in all extremities. Sensory grossly intact. Cerebellar exam normal. Normal gait. Psych: Awake, alert, with orientation to person, place and time. Behavior, mood, and affect are within normal limits. 14:03 Cardiovascular: Rate: tachycardic, actual rate is 142 bpm, Rhythm: irregular, Pulses: Pulses are 4+ in bilateral radial, brachial, femoral, popliteal, posterior tibial and and dorsalis pedis arteries.. Heart sounds: normal, Edema: is not appreciated, JVD: is not appreciated, 14:03 ECG was reviewed by the Attending Physician. Vital Signs: 11:29 BP 199 / 89; Pulse 57; Resp 18; Temp 97.2; Pulse Ox 99% ; Weight 50.35 kg; Height 5 ft. ll1 2 in. ; Pain 0/10; 12:00 BP 92 / 65; Pulse 167; Resp 15; Pulse Ox 99% on R/A; tl4 12:15 BP 99 / 72; Pulse 163; Resp 20; Pulse Ox 98% on R/A; tl4 12:30 BP 92 / 61; Pulse 134; Resp 18; Pulse Ox 99% on R/A; tl4 13:15 BP 95 / 62; Pulse 145; Resp 18; Pulse Ox 100% on R/A; Pain 0/10; tl4 13:30 BP 97 / 69; Pulse 126; Resp 14; Pulse Ox 97% on R/A; tl4 13:45 BP 104 / 78; Pulse 132; Resp 18; Pulse Ox 97% on R/A; tl4 14:00 BP 99 / 61; Pulse 139; Resp 18; Pulse Ox 98% on R/A; tl4 14:15 BP 117 / 81; Pulse 131; Resp 20; Pulse Ox 98% on R/A; tl4 14:30 BP 114 / 87; Pulse 137; Resp 20; Pulse Ox 97% on R/A; tl4 14:45 BP 109 / 80; Pulse 137; Resp 15; Pulse Ox 95% on R/A; tl4 15:15 BP 105 / 74; Pulse 131; Resp 14; Pulse Ox 97% on R/A; tl4 15:45 BP 120 / 80; Pulse 119; Resp 16; Pulse Ox 100% on R/A; tl4 16:30 BP 101 / 64; Pulse 110; Resp 18; Pulse Ox 98% on R/A; tl4 17:15 BP 108 / 78; Pulse 112; Resp 17; Pulse Ox 98% on R/A; tl4 19:00 BP 108 / 72; Pulse 90; Resp 18; Temp 97.3(O); Pulse Ox 99% on R/A; Pain 0/10; tl4 11:29 Body Mass Index 20.30 (50.35 kg, 157.48 cm) ll1 11:29 Pain Scale: Adult ll1 13:15 Pain Scale: Adult tl4 19:00 Pain Scale: Adult tl4 Dale Coma Score: 14:03 Eye Response: spontaneous(4). Motor Response: obeys commands(6). Verbal Response: rosa isela oriented(5). Total: 15. MDM: 11:33 Medical Screening Exam initiated rosa isela 14:08 Differential diagnosis: arrythmia, dehydration, stress disorder. Differential Diagnosis rosa isela altered mental status, sepsis, flu. Data reviewed: vital signs, nurses notes, lab test result(s), EKG, radiologic studies, plain films. Consideration of Admission/Observation Patient was admitted/placed on observation. Escalation of care including admission/observation considered. I considered the following discharge prescriptions or medication management in the emergency department Medications were administered in the Emergency Department. See MAR. Independent interpretation of the following test(s) in the Emergency Department EKG: See my EKG interpretation above. Test considered but Not performed: Ultrasound no 2 d echo. Historians other than the Patient: Spouse/Significant Other: well informed. Care significantly affected by the following chronic conditions: a fib, dementia, hemophilia, depression. 08/15 11:34 Order name: Basic Metabolic Panel; Complete Time: 14: [facility] 08/15 11:34 Order name: CBC with Diff; Complete Time: 14: [facility] 08/15 11:34 Order name: LFT's; Complete Time: 14:00 rosa isela 08/15 11:34 Order name: Magnesium; Complete Time: 14:00 [facility] 08/15 11:34 Order name: NT PRO-BNP; Complete Time: 14:00 [facility] 08/15 11:34 Order name: PT-INR; Complete Time: 14:00 08/15 11:34 Order name: Troponin HS; Complete Time: 14:00 08/15 11:34 Order name: TSH; Complete Time: 14:00 [facility] 08/15 11:34 Order name: Urinalysis w/ reflexes; Complete Time: 14:00 [facility] 08/15 15:07 Order name: Basic Metabolic Panel EDMS 08/15 15:07 Order name: Basic Metabolic Panel EDMS 08/15 15:07 Order name: Basic Metabolic Panel EDMS 08/15 15:07 Order name: Basic Metabolic Panel EDMS 08/15 15:07 Order name: Basic Metabolic Panel EDMS 08/15 15:07 Order name: Basic Metabolic Panel EDMS 08/15 15:07 Order name: CBC with Automated Diff EDMS 08/15 15:07 Order name: CBC with Automated Diff EDMS 08/15 15:07 Order name: CBC with Automated Diff EDMS 08/15 15:07 Order name: CBC with Automated Diff EDMS 08/15 15:07 Order name: CBC with Automated Diff EDMS 08/15 15:07 Order name: CBC with Automated Diff EDMS 08/15 15:07 Order name: Lipid Profile EDMS 08/15 15:07 Order name: Lipid Profile EDMS 08/15 15:07 Order name: Magnesium EDMS 08/15 15:07 Order name: Magnesium EDMS 08/15 15:07 Order name: Magnesium EDMS 08/15 15:07 Order name: Magnesium EDMS 08/15 15:07 Order name: Magnesium EDMS 08/15 15:07 Order name: Magnesium EDMS 08/15 15:07 Order name: Phosphorus EDMS 08/15 15:07 Order name: Phosphorus EDMS 08/15 15:07 Order name: Phosphorus EDMS 08/15 15:07 Order name: Phosphorus EDMS 08/15 15:07 Order name: Phosphorus EDMS 08/15 15:07 Order name: Phosphorus EDMS 08/15 15:07 Order name: Troponin High Sensitivity EDMS 08/15 15:07 Order name: Troponin High Sensitivity EDMS 08/15 15:07 Order name: Troponin High Sensitivity EDMS 08/15 11:34 Order name: XRAY Chest (1 view); Complete Time: 14:00 rosa isela 08/15 15:07 Order name: Physical Therapy Consult EDMS 08/15 11:34 Order name: Cardiac monitoring; Complete Time: 11:51 rosa isela 08/15 11:34 Order name: EKG - Nurse/Tech; Complete Time: 11:36 rosa isela 08/15 11:34 Order name: IV Saline Lock; Complete Time: 11:51 rosa isela 08/15 11:34 Order name: Labs collected and sent; Complete Time: 11:52 [facility] 08/15 11:34 Order name: O2 Per Protocol; Complete Time: 11:41 [facility] 08/15 11:34 Order name: O2 Sat Monitoring; Complete Time: 11:41 [facility] EC:03 Rate is 179 beats/min. Rhythm is irregularly irregular. QRS [place] is Normal. OR interval rosa isela is normal. QRS interval is normal. QT interval is normal. No Q waves. T waves are Normal. No ST changes noted. Clinical impression: Atrial Fibrillation. Interpreted by me. Reviewed by me. Administered Medications: 12:18 Drug: Metoprolol PO 50 mg PO once Route: PO; tl4 12:50 Follow up: Response: No adverse reaction; Cardiac rhythm is unchanged tl4 12:22 Drug: Metoprolol IVP 5 mg IVP once; Hold for SBP <100 or HR <60. Route: IVP; Site: left tl4 forearm; 12:50 Follow up: Response: No adverse reaction; Cardiac rhythm is unchanged tl4 12:24 Drug: Magnesium Sulfate IVPB 1 grams IVPB once over 1 hrs Route: IVPB; Rate: 100 ml/hr; tl4 Infused Over: 1 hrs; Site: left forearm; Delivery: Primary tubing; 14:18 Follow up: Response: No adverse reaction; IV Status: Completed infusion; IV Intake: tl4 100ml 12:28 Drug: Metoprolol IVP 5 mg IVP once; Hold for SBP <100 or HR <60. Route: IVP; Site: left tl4 forearm; 12:50 Follow up: Response: No adverse reaction; Cardiac rhythm is unchanged tl4 12:44 Drug: NS 0.9% IV 1000 ml IV at 125 ml/hr continuous Route: IV; Rate: 125 ml/hr; Site: tl4 left forearm; Delivery: Primary tubing; 20:39 Follow up: Response: No adverse reaction; IV Status: Completed infusion; IV Intake: tl4 1000ml 12:50 Drug: Metoprolol IVP 5 mg IVP once; Hold for SBP <100 or HR <60. Route: IVP; Site: left tl4 forearm; 13:29 Follow up: Response: No adverse reaction; Cardiac rhythm is unchanged tl4 14:17 Drug: Enoxaparin Sub-Q 1 mg/kg Sub-Q once Route: Sub-Q; Site: right lower abdomen; tl4 14:50 Follow up: Response: No adverse reaction tl4 14:17 Drug: Famotidine IVP 20 mg IVP once; dilute with 10 mL 0.9% NaCl; give over 2 minutes tl4 Route: IVP; Site: left forearm; 14:50 Follow up: Response: No adverse reaction tl4 14:18 Drug: Digoxin IVP 0.5 mg IVP once Route: IVP; Site: left forearm; tl4 14:49 Follow up: Response: No adverse reaction; Blood pressure is unchanged tl4 14:54 Drug: Potassium PO Effervescent Tablet 50 mEq PO once; dissolve in 4 ounces of water or tl4 juice Route: PO; 15:06 Follow up: Response: No adverse reaction tl4 Disposition Summary: 08/15/24 14:11 Hospitalization Ordered Notes: Hospitalization Status: Inpatient Admission rosa isela Provider: Kg Peters cha Condition: Fair rosa isela Problem: new rosa isela Symptoms: have improved rosa isela Bed/Room Type: Standard rosa isela Location: Telemetry/MedSurg (Inpatient)(08/15/24 19:07) rv1 Room Assignment: 221(08/15/24 19:07) rv1 Diagnosis - Persistent atrial fibrillation - w RVR rosa isela - Weakness rosa isela - Hypokalemia rosa isela Forms: - Medication Reconciliation Form rosa isela - SBAR form rosa isela - Leadership Thank You Letter rosa isela Signatures: Dispatcher [employer] EDMS Rae Cazares Corey, MD MD cha Blanchard, Shelby, RN RN ss Lewis, Lynsay, RN RN ll1 Nita Veliz rv1 Walter Hayward RN RN tl4 Corrections: (The following items were deleted from the chart) 11:50 11:50 BASIC METABOLIC PANEL+C.LAB.BRZ ordered. EDMS EDMS 11:50 11:50 CBC+H.LAB.BRZ ordered. EDMS EDMS 11:50 11:50 HEPATIC FUNCTION+C.LAB.BRZ ordered. EDMS EDMS 11:50 11:50 MAGNESIUM+C.LAB.BRZ ordered. EDMS EDMS 11:50 11:50 PROBNP+C.LAB.BRZ ordered. EDMS EDMS 11:50 11:50 PROTIME (+INR)+COAG.LAB.BRZ ordered. EDMS EDMS 11:50 11:50 Troponin High Sensitivity+C.LAB.BRZ ordered. EDMS EDMS 11:50 11:50 THYROID STIMULAT HORMONE+C.LAB.BRZ ordered. EDMS EDMS 11:50 11:50 Urinalysis+U.LAB.BRZ ordered. EDMS EDMS 11:50 11:50 Chest Single View+RAD.RAD.BRZ ordered. EDMS EDMS 17:08 14:11 Telemetry/MedSurg (Inpatient) rosa isela bd 17:08 14:11 rosa isela bd 18:38 17:08 [facility] ER HOLD bd bd 18:38 17:08 ERHOLD- bd bd 18:40 18:38 Telemetry/MedSurg (Inpatient) bd ss 18:40 18:38 224 bd ss 18:40 18:40 [facility] ER HOLD ss bd 18:40 18:40 ss bd 19:07 18:40 [facility] ER HOLD bd rv1 19:07 18:40 ERHOLD- bd rv1
--- NOTE | 2024-08-15 14:12 | ER ---
Nurse's Notes [facility] Name: Dasha Amaro Age: 84 yrs Sex: Female : 1940 Arrival Date: 08/15/2024 Time: 11:22 Bed 24 Private MD: Diagnosis: Persistent atrial fibrillation-w RVR;Weakness;Hypokalemia Presentation: 08/15 11:29 Chief complaint: Patient states: A fib during cardiac rehab today, sent for evaluation. ll1 Denies pain or palpitations. Coronavirus screen: Client denies travel out of the [place] in the last 14 days. At this time, the client does not indicate any symptoms associated with coronavirus-19. Ebola Screen: Patient denies travel to an Ebola-affected area in the 21 days before illness onset. Initial Sepsis Screen: Does the patient meet any 2 criteria? No. Patient's initial sepsis screen is negative. Does the patient have a suspected source of infection? No. Patient's initial sepsis screen is negative. Risk Assessment: Do you want to hurt yourself or someone else? Patient reports no desire to harm self or others. Onset of symptoms was August 15, 2024. 11:29 Method Of Arrival: Ambulatory ll1 11:29 Acuity: MACEY 3 ll1 11:38 Acuity: MACEY 2 mb9 Triage Assessment: 11:29 General: Appears in no apparent distress. Behavior is calm, cooperative, appropriate ll1 for age, Reports A fib during cardiac rehab today Denies fatigue. Pain: Denies pain. Historical: - Allergies: 11:29 No Known Allergies; ll1 - Home Meds: 19:42 Celexa Oral [Active]; tl4 - PMHx: 11:29 adhd; Anxiety; Atrial fibrillation; Dementia; Depression; hemophilia aquired; LICHEN ll1 PLANUS; Rheumatoid Arthritis; - Immunization history:: Adult Immunizations up to date. - Infectious Disease History:: Denies. - Social history:: Smoking status: Patient denies any tobacco usage or history of. - Family history:: not pertinent. Screenin:37 [facility] ED Fall Risk Assessment (Adult) History of falling in the last 3 months, tl4 including since admission No falls in past 3 months (0 pts) Confusion or Disorientation Yes (5 pts) Intoxicated or Sedated No (0 pts) Impaired Gait No (0 pts) Mobility Assist Device Used No (0 pt) Altered Elimination No (0 pt) Score/Fall Risk Level 0 - 2 = Low Risk Oriented to surroundings, Maintained a safe environment, Educated pt \T\ family on fall prevention, incl call for assistance when getting out of bed, Assessed \T\ reinforced patient's understanding of fall precautions, Provided non-skid footwear, Hourly rounding (assess needs \T\ fall precautionary measures) done. Abuse screen: Denies threats or abuse. Denies injuries from another. Nutritional screening: No deficits noted. Tuberculosis screening: No symptoms or risk factors identified. Assessment: 12:33 General: Appears in no apparent distress. Behavior is calm, cooperative. Pain: Denies tl4 pain. Neuro: Level of Consciousness is awake, alert, obeys commands, Oriented to person, place, at baseline mental status. Cardiovascular: Denies chest pain, diaphoresis, lightheadedness, palpitations, shortness of breath, syncope, Capillary refill < 3 seconds Patient's skin is warm and dry. Rhythm is atrial fibrillation with rapid ventricular response. Respiratory: Airway is patent Respiratory effort is even, unlabored, Respiratory pattern is regular, symmetrical, Breath sounds are clear bilaterally. GI: No deficits noted. No signs and/or symptoms were reported involving the gastrointestinal system. : No deficits noted. No signs and/or symptoms were reported regarding the genitourinary system. EENT: No deficits noted. No signs and/or symptoms were reported regarding the EENT system. Derm: No deficits noted. No signs and/or symptoms reported regarding the dermatologic system. Musculoskeletal: No deficits noted. No signs and/or symptoms reported regarding the musculoskeletal system. 13:30 Reassessment: No changes from previously documented assessment. Patient and/or family tl4 updated on plan of care and expected duration. Pain level reassessed. Patient is alert, oriented x 3, equal unlabored respirations, skin warm/dry/pink. Pt denies any needs at this time. Call funes at bedside. Family at bedside. Will continue to monitor. Vital Signs: 11:29 BP 199 / 89; Pulse 57; Resp 18; Temp 97.2; Pulse Ox 99% ; Weight 50.35 kg; Height 5 ft. ll1 2 in. ; Pain 0/10; 12:00 BP 92 / 65; Pulse 167; Resp 15; Pulse Ox 99% on R/A; tl4 12:15 BP 99 / 72; Pulse 163; Resp 20; Pulse Ox 98% on R/A; tl4 12:30 BP 92 / 61; Pulse 134; Resp 18; Pulse Ox 99% on R/A; tl4 13:15 BP 95 / 62; Pulse 145; Resp 18; Pulse Ox 100% on R/A; Pain 0/10; tl4 13:30 BP 97 / 69; Pulse 126; Resp 14; Pulse Ox 97% on R/A; tl4 13:45 BP 104 / 78; Pulse 132; Resp 18; Pulse Ox 97% on R/A; tl4 14:00 BP 99 / 61; Pulse 139; Resp 18; Pulse Ox 98% on R/A; tl4 14:15 BP 117 / 81; Pulse 131; Resp 20; Pulse Ox 98% on R/A; tl4 14:30 BP 114 / 87; Pulse 137; Resp 20; Pulse Ox 97% on R/A; tl4 14:45 BP 109 / 80; Pulse 137; Resp 15; Pulse Ox 95% on R/A; tl4 15:15 BP 105 / 74; Pulse 131; Resp 14; Pulse Ox 97% on R/A; tl4 15:45 BP 120 / 80; Pulse 119; Resp 16; Pulse Ox 100% on R/A; tl4 16:30 BP 101 / 64; Pulse 110; Resp 18; Pulse Ox 98% on R/A; tl4 17:15 BP 108 / 78; Pulse 112; Resp 17; Pulse Ox 98% on R/A; tl4 19:00 BP 108 / 72; Pulse 90; Resp 18; Temp 97.3(O); Pulse Ox 99% on R/A; Pain 0/10; tl4 11:29 Body Mass Index 20.30 (50.35 kg, 157.48 cm) ll1 11:29 Pain Scale: Adult ll1 13:15 Pain Scale: Adult tl4 19:00 Pain Scale: Adult tl4 [place] Coma Score: 14:03 Eye Response: spontaneous(4). Motor Response: obeys commands(6). Verbal Response: rosa isela oriented(5). Total: 15. ED Course: 11:27 Patient arrived in ED. mg5 11:29 Arm band placed on. ll1 11:32 Triage completed. ll1 11:33 Vladimir Osorio MD is Attending Physician. rosa isela 11:35 Teo Dubois, RN is Primary Nurse. bp 11:45 Missed attempt(s): 22 gauge in left antecubital area. Bleeding controlled, band aid bc6 applied, catheter tip intact. 11:52 Initial lab(s) drawn, by me, sent to lab. Inserted saline lock: 20 gauge in left bc6 forearm, using aseptic technique. Blood collected. Flushed with 10 mL NS. 12:38 Patient has correct armband on for positive identification. Placed in gown. Bed in low tl4 position. Call light in reach. Side rails up X 1. Adult w/ patient. Provided Education on: ed process, call funes. Client placed on continuous cardiac and pulse oximetry monitoring. NIBP monitoring applied. night monitor on. Door closed. Noise minimized. Lights dimmed. Moved to private room. Warm blanket given. 12:40 IV is patent, is intact, Flushed left forearm with 5 ml normal saline. tl4 12:50 XRAY Chest (1 view) In Process Unspecified. EDMS 14:11 Kg Peters is Hospitalizing Provider. rosa isela 14:51 Warm blanket given. tl4 17:25 Diet: Patient given a heart healthy meal tray. Tolerated well. tl4 19:41 No provider procedures requiring assistance completed. Patient admitted, IV remains in tl4 place. Administered Medications: 12:18 Drug: Metoprolol PO 50 mg PO once Route: PO; tl4 12:50 Follow up: Response: No adverse reaction; Cardiac rhythm is unchanged tl4 12:22 Drug: Metoprolol IVP 5 mg IVP once; Hold for SBP <100 or HR <60. Route: IVP; Site: left tl4 forearm; 12:50 Follow up: Response: No adverse reaction; Cardiac rhythm is unchanged tl4 12:24 Drug: Magnesium Sulfate IVPB 1 grams IVPB once over 1 hrs Route: IVPB; Rate: 100 ml/hr; tl4 Infused Over: 1 hrs; Site: left forearm; Delivery: Primary tubing; 14:18 Follow up: Response: No adverse reaction; IV Status: Completed infusion; IV Intake: tl4 100ml 12:28 Drug: Metoprolol IVP 5 mg IVP once; Hold for SBP <100 or HR <60. Route: IVP; Site: left tl4 forearm; 12:50 Follow up: Response: No adverse reaction; Cardiac rhythm is unchanged tl4 12:44 Drug: NS 0.9% IV 1000 ml IV at 125 ml/hr continuous Route: IV; Rate: 125 ml/hr; Site: tl4 left forearm; Delivery: Primary tubing; 20:39 Follow up: Response: No adverse reaction; IV Status: Completed infusion; IV Intake: tl4 1000ml 12:50 Drug: Metoprolol IVP 5 mg IVP once; Hold for SBP <100 or HR <60. Route: IVP; Site: left tl4 forearm; 13:29 Follow up: Response: No adverse reaction; Cardiac rhythm is unchanged tl4 14:17 Drug: Enoxaparin Sub-Q 1 mg/kg Sub-Q once Route: Sub-Q; Site: right lower abdomen; tl4 14:50 Follow up: Response: No adverse reaction tl4 14:17 Drug: Famotidine IVP 20 mg IVP once; dilute with 10 mL 0.9% NaCl; give over 2 minutes tl4 Route: IVP; Site: left forearm; 14:50 Follow up: Response: No adverse reaction tl4 14:18 Drug: Digoxin IVP 0.5 mg IVP once Route: IVP; Site: left forearm; tl4 14:49 Follow up: Response: No adverse reaction; Blood pressure is unchanged tl4 14:54 Drug: Potassium PO Effervescent Tablet 50 mEq PO once; dissolve in 4 ounces of water or tl4 juice Route: PO; 15:06 Follow up: Response: No adverse reaction tl4 Medication: 12:37 VIS not applicable for this client. tl4 Intake: 14:18 IV: 100ml; Total: 100ml. tl4 20:39 IV: 1000ml; Total: 1100ml. tl4 Outcome: 14:11 Decision to Hospitalize by Provider. rosa isela 21:12 Admitted to Med/surg accompanied by tech, via wheelchair, room 221, with chart, tl4 21:12 Condition: stable 21:12 Instructed on the need for admit, 21:13 Patient left the ED. tl4 Signatures: Dispatcher [employer] EDVladimir Johnson MD MD cha Peltier, Brian, RN RN bp Lewis, Lynsay, RN RN ll1 Winter Koch RN RN mb9 Alem Singer bc6 Lorene Vegas mg5 Walter Hayward RN RN tl4 Corrections: (The following items were deleted from the chart) 12:41 12:24 Magnesium Sulfate IVPB 1 grams IVPB at 100 ml/hr in left antecubital over 1 hrs tl4 via Primary tubing tl4 12:42 12:22 Metoprolol IVP 5 mg IVP in left antecubital tl4 tl4 12:43 12:28 Metoprolol IVP 5 mg IVP in left antecubital tl4 tl4 12:44 12:20 NS 0.9% IV 1000 ml IV at 125 ml/hr in right antecubital via Primary tubing tl4 tl4
--- NOTE | 2024-08-15 14:32 | P.HP ---
Certification for Inpatient Patient admitted to: Observation With expected LOS: <2 Midnights Practitioner: I am a practitioner with admitting privileges, knowledge of patient current condition, hospital course, and medical plan of care. Services: Services provided to patient in accordance with Admission requirements found in Title 42 Section 412.3 of the Code of Federal Regulations Patient History Date of Service: 08/15/24 Reason for admission: Afib with RVR History of Present Illness: Dasha Amaro is an 84-year-old female with past medical history of anxiety/depression, ADHD, dementia, rheumatoid arthritis, acquired hemophilia, lichen planus, who presents to the ED with chief complaint of irregular heartbeat, heart racing for 2 days. While in the ED heart rate up to 167. Treated with digoxin, magnesium, and Lopressor. Chest x-ray reports "No acute intrathoracic abnormalities. " Laboratory evaluation with potassium 3.3, BNP 4858, serum glucose 133, and H&H . Dasha will be admitted to hospitalist service for further evaluation and treatment of A-fib with RVR. Cardiology consulted Allergies No Known Allergies Allergy (Uncoded 06/07/17 11:26) Unknown - Past Medical/Surgical History -: Anxiety -: depression -: ADHD -: dementia -: rheumatoid arthritis -: acquired hemophilia -: Lichen Planus Past Surgical History: Unable to obtain - Social History Smoking Status: Never smoker Alcohol use: No CD- Drugs: No Caffeine use: No Review of Systems Cardiovascular: Palpitations Physical Examination - Physical Exam General: Alert, In no apparent distress, Oriented x3 HEENT: Atraumatic, Normocephalic, PERRLA Neck: Supple, 2+ carotid pulse no bruit, JVD not distended Respiratory: Clear to auscultation bilaterally, Normal air movement Cardiovascular: No edema, Normal pulses, Irregular heart rate/rhythm Capillary refill: <2 Seconds Gastrointestinal: Normal bowel sounds, Hypoactive, Soft and benign Musculoskeletal: No clubbing Integumentary: No rashes Neurological: Normal speech, Normal tone, Other (dementia) - Studies Laboratory Data (last 24 hrs) 08/15/24 08/15/24 08/15/24 11:50 11:50 11:50 WBC 5.30 Hgb 16.6 H Hct 49.1 H Plt Count 221 PT 11.2 INR 1.00 Sodium 145 Potassium 3.3 L BUN 14 Creatinine 0.94 Glucose 133 H Magnesium 2.1 Total Bilirubin 1.0 AST 12 L ALT 17 Alkaline Phosphatase 115 Assessment and Plan - Plan Assessment and plan New onset A-fib with RVR -Cardiology consulted -Digoxin, Lopressor, magnesium, and Lovenox 60 mg given in the ED -Echo ordered -Continuous telemetry -Serial EKG -Trend troponin -Sotalol and eliquis started -TSH 1.920, BNP 4858 -Lipid panel pending Hypokalemia -Potassium 3.2 -Repleted in the ED -Monitor and replace as needed Hyperglycemia -serum glucose 133 -A1C in the AM Anxiety/depression ADHD Dementia Acquired hemophilia Lichen planus Rheumatoid arthritis -Continue home medications -H/H DVT PPx Eliquis Full code LOS 2 days Discharge Plan: Home Plan to discharge in: 48 Hours - Advance Directives Does patient have a Living Will: No Does patient have a Durable POA for Healthcare: No
[2024-08-15] MEDS ORDERED: ACETAMINOPHEN 325 MG TABLET PO PRN (14:56)
[2024-08-15] MEDS: NA CHLORIDE 0.9% 1,000 ML IV SCH (15:00)
[2024-08-15] MEDS: SOTALOL HCL 80 MG TAB PO SCH (18:00)
[2024-08-15] MEDS ORDERED: SOTALOL HCL 80 MG TAB ONE (20:23)
[2024-08-15] MEDS: APIXABAN 5 MG TABLET PO SCH (21:53)
[2024-08-16 08:36] LABS: Absolute Eosinophils 0.1 K/uL (0-0.5); Absolute Lymphocytes (CBC) 1.3 K/uL (0.7-4.9); Absolute Monocytes 0.4 K/uL (0.1-1.3); Absolute Neutrophil 3.8 K/uL (1.8-8.0); Basophils % 0.2 % (0-1.3); Hematocrit 40.8 % (36.0-45.0); Hemoglobin 14.5 g/dL (12.0-15.0); Lymphocytes % 23.1 % (15.3-44.8); MCH 34.1 pg (27.0-35.0); MCHC 35.4 g/dL (32.0-36.0); MCV 96.1 fL (80-100); MPV 8.2 fL (7.6-11.3); Monocytes % 7.3 % (3.3-12.3); Neutrophils % 68.4 % (41.7-73.7); Nucleated Red Blood Cells % 0.2 % (0-0); Platelets 200 thou/uL (152-406); RBC Red Blood Cell Count 4.24 M/uL (3.86-4.86); Red Cell Distribution Width 12.7 % (12.1-15.2)
[2024-08-16 08:51] LABS: Anion Gap 6.6 mEq/L (5.0-15.0); Magnesium 2.1 mg/dL (1.6-2.4); Phosphorus 2.6 mg/dL (2.5-4.9); Potassium 4.6 mEq/L (3.5-5.1)
[2024-08-16] MEDS: NA CHLORIDE 0.9% 500 ML ONE (09:15)
[2024-08-16] MEDS ORDERED: LIDOCAINE 1% MPF 5 ML VIAL ONE (10:13)
[2024-08-16] MEDS ORDERED: propofoL 200 MG/20 ML VIAL IV ONE (10:13)
--- NOTE | 2024-08-16 10:49 | P.CNS ---
Date of Consult: 08/16/24 Chief Complaint: Afib with RVR History of Present Illness: Patient with no significant cardiac history presented with palpitations, patient is demented so history is heard to obtain, but she denies chest pain, no SOB, no syncope. Allergies No Known Allergies Allergy (Uncoded 06/07/17 11:26) Unknown Home medications list reviewed: Yes - Past Medical/Surgical History Diabetic: No -: Anxiety -: depression -: ADHD -: dementia -: rheumatoid arthritis -: acquired hemophilia -: Lichen Planus - Family History Mother History Unknown: Yes Father History Unknown: Yes - Social History Alcohol use: No CD- Drugs: No Caffeine use: No Place of Residence: Home Review of Systems 10-point ROS is otherwise unremarkable Physical Examination Temp Pulse Resp BP Pulse Ox 97.7 F 53 18 106/52 L 97 08/16/24 10:27 08/16/24 10:27 08/16/24 10:08/16/24 10:08/16/24 08:00 General: Alert, In no apparent distress HEENT: Atraumatic, PERRLA, Mucous membr. moist/pink, EOMI, Sclerae nonicteric Neck: Supple, 2+ carotid pulse no bruit, No LAD, Without JVD or thyroid abnormality Respiratory: Clear to auscultation bilaterally, Normal air movement Cardiovascular: Irregular heart rate/rhythm Gastrointestinal: Normal bowel sounds, No tenderness Musculoskeletal: No tenderness Integumentary: No rashes Neurological: Normal gait, Normal speech, Normal tone, Normal affect Lymphatics: No axilla or inguinal lymphadenopathy Laboratory Data (last 24 hrs) 08/15/24 08/15/24 08/15/24 11:50 11:50 11:50 WBC 5.30 Hgb 16.6 H Hct 49.1 H Plt Count 221 PT 11.2 INR 1.00 Sodium 145 Potassium 3.3 L BUN 14 Creatinine 0.94 Glucose 133 H Magnesium 2.1 Total Bilirubin 1.0 AST 12 L ALT 17 Alkaline Phosphatase 115 - Problems (1) Atrial fibrillation Current Visit: Yes Status: Acute Plan: new onset, patient is s/p GERALD DCCV, now in sinus rhythm continue Sotalol 80 mg po BID (EKG after 3rd dose) continue Eliquis 5 mg po BID (2) Mitral regurgitation Current Visit: Yes Status: Acute Plan: moderate to severe on GERALD, patient is not a surgical candidate, will continue to monitor on outpatient basis. (3) Aortic regurgitation Current Visit: Yes Status: Acute Plan: mild to moderate on GERALD, continue to monitor.
[2024-08-16] MEDS: ASPIRIN EC 81 MG TAB PO SCH (11:38)
--- NOTE | 2024-08-16 11:51 | P.PN ---
Date of Service: 08/16/24 Subjective Cardioversion this morning Eating fries this afternoon Confused but pleasant ROS 10 point ROS as noted above, otherwise negative Physical Exam General: AAOx1, NAD HEENT: Atraumatic, Normocephalic, PERRLA Neck: Supple, 2+ carotid pulse no bruit, JVD not distended Respiratory: Clear to auscultation bilaterally, Normal air movement, on room air Cardiovascular: No edema, Normal pulses, Irregular heart rate/rhythm Capillary refill: <2 Seconds Gastrointestinal: Normal bowel sounds, Hypoactive, Soft and benign on palpation Musculoskeletal: No clubbing Integumentary: No rashes Neurological: Normal speech, Normal tone, Other (dementia) Vitals Reviewed Problem list New onset A-fib with RVR Hypokalemia Hyperglycemia Anxiety/depression ADHD Dementia Acquired hemophilia Lichen planus Rheumatoid arthritis Assessment and Plan New onset A-fib with RVR moderate to severe mitral regurgitation Mild to morderate aortic valve regurgitation -Cardiology consulted, Successful cardioversion -Digoxin, Lopressor, magnesium, and Lovenox 60 mg given in the ED -GERALD performed showing moderate to severe mitral regurgitation and mild to moderate aortic regurgitation -Continuous telemetry -Serial EKG -troponin trend flat -Sotalol and eliquis started -TSH 1.920, BNP 4858 -Lipid panel pending Hypokalemia -Potassium 4.6 -Monitor and replace as needed Hyperglycemia -serum glucose 99 -A1C 5.1 Anxiety/depression ADHD Dementia Acquired hemophilia Lichen planus Rheumatoid arthritis -Continue home medications -H/H 14.5/40.8 DVT PPx Eliquis Full code LOS 2 days Discharge Plan: Home Plan to discharge in: 48 Hours
--- NOTE | 2024-08-16 11:53 | EKG ---
Test Date: 2024-08-15 Test Time: 11:36:52 Student Dean: MERLENE MEASUREMENT RESULTS: Intervals: Rate: 179 [place]: QRSD: 68 QT: 206 QTc: 355 [place]: P: [place]: QRS: 83 T: 268 INTERPRETIVE STATEMENTS: Supraventricular tachycardia with premature supraventricular complexes ST & T wave abnormality, consider inferolateral ischemia Abnormal ECG Compared to ECG 06/05/2023 16:57:50 Atrial premature complex(es) now present Possible ischemia now present Sinus tachycardia no longer present ST (T wave) deviation still present Electronically Signed On 08-16-24 11:51:06 CDT by Alphonse Rousseau
--- NOTE | 2024-08-16 12:14 | EKG ---
Test Date: 2024-08-16 Test Time: 07:53:41 Key Account Coordinator: AUDRA MEASUREMENT RESULTS: Intervals: Rate: 141 [place]: QRSD: 70 QT: 318 QTc: 487 [place]: P: [place]: QRS: 39 T: 235 INTERPRETIVE STATEMENTS: Atrial fibrillation with rapid ventricular response with premature ventricular or aberrantly conducted complexes Low voltage QRS ST & T wave abnormality, consider anterolateral ischemia or digitalis effect Abnormal ECG Compared to ECG 08/15/2024 11:36:52 Ventricular premature complex(es) now present Low QRS voltage now present Atrial premature complex(es) no longer present Supraventricular tachycardia no longer present ST (T wave) deviation still present Possible ischemia still present Electronically Signed On 08-16-24 12:00:13 CDT by Alphonse Rousseau
--- NOTE | 2024-08-16 12:30 | TEE ---
TRANSESOPHAGEAL ECHOCARDIOGRAM REPORT CARDIOLOGY DEPARTMENT DATE OF STUDY: 08/16/2024 HEIGHT: 5'2" WEIGHT: 110 lbs DIAGNOSIS: ATRIAL FIBRILLATION, CARDIOVERSION WEAVER TIRE CORD COMMENTS: GERALD CARDIAC HISTORY: CATHERIZATION: SURGERY: PROSTHETIC VALVE: PACEMAKER: 2 DIMENSIONAL ASSESSMENT: RIGHT ATRIUM: LEFT ATRIUM: SEVERELY DILATED RIGHT VENTRICLE: LEFT VENTRICLE: NORMAL TRICUSPID VALVE: MODERATE TRICUSPID REGURGITATION MITRAL VALVE: MODERATE TO SEVERE MITRAL REGURGITATION PULMONIC VALVE: MILD PULMONIC REGURGITATION AORTIC VALVE: MILD TO MODERATE AORTIC REGURGITATION PERICARDIAL EFFUSION: NONE AORTIC ROOT: EJECTION FRACTION: LEFT VENTRICULAR WALL MOTION: NORMAL DOPPLER/COLOR FLOW: COMMENTS: 1. NORMAL LEFT ATRIAL APPENDAGE, NO CLOTS, SEVERELY DILATED LEFT ATRIUM 2. MODERATE TO SEVERE MITRAL REGURGITATION (MULTIPLE JETS) 3. MILD TO MODERATE AORTIC REGURGITATION TECHNOLOGIST: DENISE AMBROSIO
--- NOTE | 2024-08-16 13:00 | OP ---
Date of Procedure: 08/16/2024 Surgeon: Alphonse Rousseau Procedure Performed: GERALD cardioversion. Indication For Procedure: Atrial fibrillation. Complications: None. Estimated Blood Loss: None. Sedation: Done by Anesthesia Team. Description Of Procedure: After risks, benefits, and alternatives were explained to the patient, the patient agreed to proceed with procedure and signed informed consent. The patient was brought back to the OR. Time-out was performed. Sedation was administered by Anesthesia Team. GERALD probe was ins erted. Images were obtained. TTE probe was out. No complications. Synchronized cardioversion was done with 200 joules. The patient was converted back into sinus rhythm. The patient was moved back to recovery in stable condition. Assessment And Plan: 1.Atrial fibrillation, status post successful GERALD-guided cardioversion. 2.The plan will be to continue sotalol 80 b.i.d. 3.Continue Eliquis 5 mg p.o. b.i.d. DAHLIA/CLEMENT Voice ID: [id number] Report ID: [id number]
[2024-08-17 03:59] VITALS: O2SAT 97
[2024-08-17 04:56] VITALS: BMI 20.5
[2024-08-17 04:57] LABS: Absolute Eosinophils 0.1 K/uL (0-0.5); Absolute Lymphocytes (CBC) 1.6 K/uL (0.7-4.9); Absolute Monocytes 0.4 K/uL (0.1-1.3); Absolute Neutrophil 3.2 K/uL (1.8-8.0); Basophils % 0.1 % (0-1.3); Eosinophils % 1.3 % (0-4.4); Hematocrit 35.7 % (36.0-45.0); Hemoglobin 12.5 g/dL (12.0-15.0); Lymphocytes % 30.4 % (15.3-44.8); MCV 97.3 fL (80-100); MPV 8.8 fL (7.6-11.3); Monocytes % 8.3 % (3.3-12.3); Neutrophils % 59.9 % (41.7-73.7); Platelets 147 thou/uL (152-406); RBC Red Blood Cell Count 3.67 M/uL (3.86-4.86); Red Cell Distribution Width 12.8 % (12.1-15.2)
[2024-08-17 05:13] LABS: Anion Gap 8.1 mEq/L (5.0-15.0); Phosphorus 3.6 mg/dL (2.5-4.9); Potassium 4.1 mEq/L (3.5-5.1)
[2024-08-17 16:31] VITALS: BP 115/52; TEMP 98.1
--- NOTE | 2024-08-17 16:34 | P.DS ---
Admission Date: 08/15/24 Discharge Date: 08/17/24 Disposition: ROUTINE DISCHARGE Discharge Condition: FAIR Reason for Admission: Afib with RVR Brief History of Present Illness: Dasha Amaro is an 84-year-old female with past medical history of anxiety/depression, ADHD, dementia, rheumatoid arthritis, acquired hemophilia, lichen planus, who presents to the ED with chief complaint of irregular heartbeat, heart racing for 2 days. While in the ED heart rate up to 167. Treated with digoxin, magnesium, and Lopressor. Chest x-ray reports "No acute intrathoracic abnormalities. " Laboratory evaluation with potassium 3.3, BNP 4858, serum glucose 133, and H&H 16/49. Dasha will be admitted to hospitalist service for further evaluation and treatment of A-fib with RVR. Cardiology consulted Vital Signs/Physical Exam: Temp Pulse Resp BP Pulse Ox 98.1 F 51 16 115/52 L 97 08/17/24 16:00 08/17/24 16:00 08/17/24 16:00 08/17/24 16:00 08/17/24 16:00 Laboratory Data at Discharge: WBC 5.40 thou/uL (4.3-10.9) 08/17/24 04:11 Hgb 12.5 g/dL (12.0-15.0) D 08/17/24 04:11 Hct 35.7 % (36.0-45.0) L 08/17/24 04:11 Plt Count 147 thou/uL (152-406) L D 08/17/24 04:11 PT 11.2 SECONDS (9.4-12.5) 08/15/24 11:50 INR 1.00 08/15/24 11:50 Sodium 142 mEq/L (136-145) 08/17/24 04:11 Potassium 4.1 mEq/L (3.5-5.1) 08/17/24 04:11 BUN 13 mg/dL (7-18) 08/17/24 04:11 Creatinine 0.75 mg/dL (0.55-1.02) 08/17/24 04:11 Glucose 91 mg/dL (74-106) 08/17/24 04:11 Phosphorus 3.6 mg/dL (2.5-4.9) 08/17/24 04:11 Magnesium 2.0 mg/dL (1.6-2.4) 08/17/24 04:11 Total Bilirubin 1.0 mg/dL (0.2-1.0) 08/15/24 11:50 AST 12 U/L (15-37) L 08/15/24 11:50 ALT 17 U/L (13-56) 08/15/24 11:50 Alkaline Phosphatase 115 U/L (45-117) 08/15/24 11:50 Triglycerides 212 mg/dL (<150) H 08/16/24 08:13 Cholesterol 153 mg/dL (<200) 08/16/24 08:13 HDL Cholesterol 42 mg/dL (40-60) 08/16/24 08:13 Cholesterol/HDL Ratio 3.64 08/16/24 08:13 Home Medications: Apixaban [Eliquis] 5 mg PO BID #60 tab 08/17/24 Sotalol HCl [Betapace*] 80 mg PO BID 6AM 6PM #60 tab 08/17/24 New Medications: Sotalol HCl [Betapace*] 80 mg PO BID 6AM 6PM #60 tab Apixaban [Eliquis] 5 mg PO BID #60 tab Diet: AHA Activity: Fall precautions Followup: NONE,NONE [Primary Care Provider] -
--- NOTE | 2024-08-17 16:45 | P.DS ---
Admission Date: 08/15/24 Discharge Date: 08/17/24 Disposition: ROUTINE DISCHARGE Discharge Condition: FAIR Reason for Admission: Afib with RVR Brief History of Present Illness: Dasha Amaro is an 84-year-old female with past medical history of anxiety/depression, ADHD, dementia, rheumatoid arthritis, acquired hemophilia, lichen planus, who presented to the ED with chief complaint of irregular heartbeat and heart racing for 2 days. While in the ED, her heart rate went up to 167. Patient was given digoxin, magnesium, and Lopressor. Chest x-ray showed no acute intrathoracic abnormalities. Laboratory evaluation with potassium 3.3, BNP 4858, serum glucose 133, and H&H 16/49. Patient was admitted to hospitalist service for further evaluation and management of A-fib with RVR. Hospital Course: Patient was admitted to the medical floor and the following medical problems addressed: New onset A-fib with RVR moderate to severe mitral regurgitation Mild to morderate aortic valve regurgitation Cardiology consulted, patient underwent successful cardioversion after GERALD was performed. GERALD showed moderate to severe mitral regurgitation and mild to moderate aortic regurgitation Serial EKG done, QTc interval after 3 dose of sotalol did not show any prolongation. Patient was treated with sotalol and Eliquis. She had a high risk for stroke from cardioversion. Patient also has risk for bleeding given his history of acquired hemophilia. Case discussed with cardiology Dr. Reed, risk of stroke after cardioversion at this point outweighs risk of bleeding. Patient will continue anticoagulation with Eliquis for at least 1 month. Patient will follow with Dr. Reed next week. I discussed fall precautions with patient and her and advised no falls at all cost. Patient advised to use assistive device if needed. Hypokalemia Potassium 4.6 Anxiety/depression ADHD Dementia Acquired hemophilia Lichen planus Rheumatoid arthritis Continued home medications Vital Signs/Physical Exam: Temp Pulse Resp BP Pulse Ox 98.1 F 51 16 115/52 L 97 08/17/24 16:00 08/17/24 16:00 08/17/24 16:00 08/17/24 16:00 08/17/24 16:00 General: Alert, In no apparent distress, Oriented x3 HEENT: Mucous membr. moist/pink Neck: Supple, JVD not distended Respiratory: Clear to auscultation bilaterally, Normal air movement Cardiovascular: No edema, Regular rate/rhythm, Normal S1 S2 Capillary refill: <2 Seconds Gastrointestinal: Normal bowel sounds, Soft and benign, Non-distended, No tenderness Musculoskeletal: No swelling Integumentary: No rashes, No cyanosis Neurological: Normal speech, Normal strength at 5/5 x4 extr Laboratory Data at Discharge: WBC 5.40 thou/uL (4.3-10.9) 08/17/24 04:11 Hgb 12.5 g/dL (12.0-15.0) D 08/17/24 04:11 Hct 35.7 % (36.0-45.0) L 08/17/24 04:11 Plt Count 147 thou/uL (152-406) L D 08/17/24 04:11 PT 11.2 SECONDS (9.4-12.5) 08/15/24 11:50 INR 1.00 08/15/24 11:50 Sodium 142 mEq/L (136-145) 08/17/24 04:11 Potassium 4.1 mEq/L (3.5-5.1) 08/17/24 04:11 BUN 13 mg/dL (7-18) 08/17/24 04:11 Creatinine 0.75 mg/dL (0.55-1.02) 08/17/24 04:11 Glucose 91 mg/dL (74-106) 08/17/24 04:11 Phosphorus 3.6 mg/dL (2.5-4.9) 08/17/24 04:11 Magnesium 2.0 mg/dL (1.6-2.4) 08/17/24 04:11 Total Bilirubin 1.0 mg/dL (0.2-1.0) 08/15/24 11:50 AST 12 U/L (15-37) L 08/15/24 11:50 ALT 17 U/L (13-56) 08/15/24 11:50 Alkaline Phosphatase 115 U/L (45-117) 08/15/24 11:50 Triglycerides 212 mg/dL (<150) H 08/16/24 08:13 Cholesterol 153 mg/dL (<200) 08/16/24 08:13 HDL Cholesterol 42 mg/dL (40-60) 08/16/24 08:13 Cholesterol/HDL Ratio 3.64 10/17/24 08:13 Home Medications: Apixaban [Eliquis] 5 mg PO BID #60 tab 08/17/24 Sotalol HCl [Betapace*] 80 mg PO BID 6AM 6PM #60 tab 08/17/24 New Medications: Sotalol HCl [Betapace*] 80 mg PO BID 6AM 6PM #60 tab Apixaban [Eliquis] 5 mg PO BID #60 tab Diet: AHA Activity: Fall precautions Followup: NONE,NONE [Primary Care Provider] - Lawson Reed MD [ACTIVE - CAN ADMIT] - 1-2 Weeks Time spent managing pt's care (in minutes): 36
--- NOTE | 2024-08-18 21:15 | PN ---
Date of Progress Note: 08/17/2024 Subjective: Seen by bedside, continues to be in sinus rhythm post cardioversion. Review of Systems: No chest pain, shortness of breath, orthopnea, cough. No nausea, vomiting, diarrhea. No palpitation s. All other systems reviewed are negative. Physical Examination: Vital Signs: Reviewed. Head and Neck: Pupils are equal, reactive to light. Intact eye movements. No JVD. No cervical lym phadenopathy . Neck: Supple. Thyroid is not enlarged. Lungs: Clear to auscultation bilaterally. No rhonchi, wheezing, or crackles. No accessory muscle u se. Heart: Regular rhythm, no extra sounds. Abdomen: Soft, nontender. Bowel sounds positive. No organomegaly. No masses or hernia. No rigidi ty or rebound. Extremities: No clubbing or cyanosis. Intact pulses. Skin: No rashes. Neurologic: Alert, awake, oriented x3. No acute focal deficits appreciated. Investigation: Labs were reviewed. Assessment/recommendation: 1.Atrial fibrillation, she is in sinus rhythm post GERALD cardioversion. Continue sotalol and Eliquis. 2.Mitral regurgitation, moderate to severe on GERALD. Recommend repeat echo in 6 months and post disch arge, I recommend close followup. 3.Aortic regurgitation, moderate. We will monitor . From Cardiology standpoint, the patient can be released and to follow up on outpatient basis. /CLEMENT Voice ID: [id number] Report ID: [id number]
== END 2024-08-17 17:38 | disposition home or self-care (01) | DRG 309 ==
LOC: ER 11:22 → ERHOLD 14:56 → 2ND 20:10
PROVIDERS: ADMIT Internal Medicine; ATTEND Internal Medicine
PROC: B24BZZ4 Ultrasonography of Heart with Aorta, Transesophageal (ICD-10-PCS; principal; 2024-08-16)
PROC: 5A2204Z Restoration of Cardiac Rhythm, Single (ICD-10-PCS; 2024-08-16)
DX: I48.19 Other persistent atrial fibrillation (principal); D68.311 Acquired hemophilia; F32.A Depression, unspecified; E87.6 Hypokalemia; F41.9 Anxiety disorder, unspecified; I08.0 Rheumatic disorders of both mitral and aortic valves; L43.9 Lichen planus, unspecified; M06.9 Rheumatoid arthritis, unspecified; F03.90 Unspecified dementia, unspecified severity, without behavioral disturbance, psychotic disturbance, mood disturbance, and anxiety; R73.9 Hyperglycemia, unspecified
CPT/HCPCS: 01922; 36415; 71045; 80048; 80061; 80076; 81001; 83036; 83735; 83880; 84100; 84443; 84484; 85025; 85610; 93005; 93312; 96361; 96365; 96366; 96372; 96375; 97161; 99285; J1160; J1650; J2001; J2704; J3475; J7030; J7040

== ENCOUNTER 2024-11-15 14:04 | Emergency (ER) | payer OTHER ==
--- NOTE | 2024-11-15 15:01 | RAD REPORT ---
EXAM: Chest Single View HISTORY: upper abdomen pain COMPARISON: 08/15/2024 FINDINGS: LUNGS/PLEURA: Chronic bronchial wall thickening. No focal consolidation or pulmonary edema. MEDIASTINUM: The mediastinal silhouette is within normal limits. CARDIAC: The cardiac silhouette is within normal limits. UPPER ABDOMEN: No significant abnormality. BONES: No acute abnormality. LINES/TUBES/OTHER: N/A IMPRESSION: No evidence of acute cardiopulmonary disease.
[2024-11-15] MEDS ORDERED: NA CHLORIDE 0.9% 500 ML ONE (15:18)
[2024-11-15] MEDS ORDERED: ONDANSETRON 4 MG/2 ML VIAL ONE (15:18)
[2024-11-15 16:22] LABS: Absolute Eosinophils 0.1 K/uL (0-0.5); Absolute Lymphocytes (CBC) 1.4 K/uL (0.7-4.9); Absolute Monocytes 0.4 K/uL (0.1-1.3); Absolute Neutrophil 3.8 K/uL (1.8-8.0); Basophils % 0.3 % (0-1.3); Eosinophils % 1.2 % (0-4.4); Hematocrit 43.7 % (36.0-45.0); Hemoglobin 15.4 g/dL (12.0-15.0); Lymphocytes % 24.4 % (15.3-44.8); MCH 33.4 pg (27.0-35.0); MCHC 35.1 g/dL (32.0-36.0); MPV 7.7 fL (7.6-11.3); Neutrophils % 67.1 % (41.7-73.7); Platelets 223 thou/uL (152-406)
[2024-11-15 16:33] LABS: Albumin 3.5 g/dL (3.4-5.0); Albumin/Globulin Ratio 1.2 (1.1-1.8); Anion Gap 7.6 mEq/L (5.0-15.0); Bilirubin Total 1.2 mg/dL (0.2-1.0); Potassium 3.6 mEq/L (3.5-5.1); Protein, Total 6.5 g/dL (6.4-8.2)
[2024-11-15 17:07] LABS: Specific Gravity 1.029 (1.005-1.030); Sqamous Epithelial <5 /HPF (None Seen); Transitional Epithelial <5 /HPF (None Seen); Urine Bacteria <20 /HPF (<20); Urine Bilirubin NEGATIVE (Negative); Urine Blood Negative (Negative); Urine Clarity Extremely Turbid (Clear); Urine Color Yellow (Yellow); Urine Culture Reflex Order NOT NEEDED; Urine Glucose NEGATIVE (Negative); Urine Ketones NEGATIVE (Negative); Urine Microscopic Reflex YN ORDER UMIC; Urine Mucus 2+ /HPF (None Seen); Urine Nitrite NEGATIVE (Negative); Urine Protein TRACE (Negative); Urine RBC 21-50 /HPF (None Seen); Urine Urobilinogen Normal (Normal); Urine WBC <5 /HPF (<5)
--- NOTE | 2024-11-15 17:13 | RAD REPORT ---
EXAMINATION: CT ABDOMEN AND PELVIS WITH CONTRAST CLINICAL INDICATION: Female, 84 years old.nausea;Abd pain TECHNIQUE: CT abdomen and pelvis was performed, after the administration of IV contrast, as per [facility] protocol. Axial, sagittal and coronal reconstructions were obtained. One or more of the following dose reduction techniques were used: Automated exposure control, adjustment of the mA and/o r kV according to patient size, and/or iterative reconstruction. Unless otherwise specified, incidental findings do not require dedicated imaging follow-up. [id number]. COMPARISON: 06/07/17 FINDINGS: LOWER CHEST: No acute process identified.No significant pericardial effusion. Aortic valve calcificat ions. UPPER GI: No significant abnormality. LIVER: Hepatic steatosis, but otherwise unremarkable. GALLBLADDER/BILE DUCTS: No biliary ductal dilatation.? PANCREAS: Atrophy, but otherwise unremarkable. SPLEEN: Unremarkable. ADRENALS: No adrenal masses. KIDNEYS AND URETERS: No hydronephrosis.No suspicious renal mass. ABDOMINAL AORTA AND OTHER VESSELS: Mild atherosclerotic changes. PERITONEUM: No abnormal free fluid. No free air. LYMPH NODES: No pathologic lymphadenopathy. ABDOMINAL WALL: Unremarkable SMALL BOWEL/COLON: Small bowel has normal course and caliber. No colonic wall thickening or pericolon ic inflammatory changes.Normal appendix. The tip of the appendix is present at the right inguinal canal but this is of doubtful significance. URINARY BLADDER: Underdistended but grossly unremarkable. REPRODUCTIVE ORGANS: No pathologic process. MUSCULOSKELETAL: No acute or suspicious osseous abnormality. Grade 1 anterolisthesis of L3 on L4. ADDITIONAL FINDINGS: None. IMPRESSION: No acute or significant abnormalities seen in the abdomen or pelvis.
--- NOTE | 2024-11-15 18:35 | EDPHYS ---
Physician Documentation [facility] Name: Dasha Amaro Age: 84 yrs Sex: Female : 1940 Arrival Date: 11/15/2024 Time: 14:04 Bed 4 Private MD: ED Physician Vladimir Osorio HPI: 11/15 14:45 This 84 yrs old Female presents to ER via Ambulatory with complaints of Abdominal Pain, cp Won't Eat. 14:45 The patient presents with abdominal pain in the upper abdomen. Associated signs and cp symptoms: Pertinent positives: nausea, decreased appetite, Pertinent negatives: chest pain, constipation, diarrhea, fever, vomiting. Severity of pain: in the emergency department the pain is unchanged despite home interventions. Historical: - Allergies: 14:23 No Known Allergies; ll1 - PMHx: 14:23 adhd; Anxiety; Atrial fibrillation; Dementia; Depression; hemophilia aquired; LICHEN ll1 PLANUS; Rheumatoid Arthritis; - Immunization history:: Adult Immunizations up to date. - Infectious Disease History:: Denies. - Social history:: Smoking status: Patient denies any tobacco usage or history of. ROS: 14:50 Constitutional: Negative for body aches, chills, fever, cp 14:50 Respiratory: Negative for cough, shortness of breath, wheezing, cp 14:50 Abdomen/GI: Positive for abdominal pain, nausea, 14:50 Eyes: Negative for injury, pain, redness, and discharge, cp 14:50 Cardiovascular: Negative for chest pain, palpitations, cp 14:50 Neuro: Negative for altered mental status, 14:50 All other systems are negative, Exam: 14:55 Constitutional: The patient appears in no acute distress, alert, awake, non-toxic, well cp developed, well nourished, 14:55 Head/Face: Normocephalic, atraumatic. cp 14:55 Eyes: Periorbital structures: appear normal, Conjunctiva: normal, no exudate, no injection, Sclera: no appreciated abnormality, Lids and lashes: appear normal, bilaterally, 14:55 ENT: External ear(s): are unremarkable, Nose: is normal, Mouth: Lips: moist, Oral mucosa: moist, Posterior pharynx: Airway: no evidence of obstruction, patent, 14:55 Chest/axilla: Inspection: normal, 14:55 Cardiovascular: Rate: normal, Edema: is not appreciated, JVD: is not appreciated, 14:55 Respiratory: the patient does not display signs of respiratory distress, Respirations: normal, no use of accessory muscles, no retractions, labored breathing, is not present, Breath sounds: are clear throughout, no decreased breath sounds, no stridor, no wheezing, 14:55 Abdomen/GI: Inspection: abdomen appears normal, Bowel sounds: active, all quadrants, Palpation: soft, in all quadrants, mild abdominal tenderness, in the right upper quadrant and left upper quadrant, rebound tenderness, is not appreciated, involuntary guarding, is not appreciated, 14:55 Back: pain, is absent, ROM is normal, Vital Signs: 14:23 BP 145 / 69; Pulse 64; Resp 17; Temp 98.1; Pulse Ox 95% ; Weight 50.35 kg; Height 5 ft. ll1 2 in. ; 17:33 BP 137 / 77; Pulse 74; Resp 17; Pulse Ox 99% ; rs5 18:23 BP 144 / 82; Pulse 77; Resp 17; Pulse Ox 99% ; rs5 14:23 Body Mass Index 20.30 (50.35 kg, 157.48 cm) ll1 MDM: 14:25 Medical Screening Exam initiated cp 18:35 Data reviewed: vital signs, nurses notes, lab test result(s), radiologic studies, CT cp scan, and as a result, I will discharge patient. 18:35 Differential diagnosis: appendicitis, bowel obstruction, cholecystitis, Cholelithiasis, cp diverticulitis, non-specific abd pain, pancreatitis. I considered the following discharge prescriptions or medication management in the emergency department Medications were administered in the Emergency Department. See MAR. Counseling: I had a detailed discussion with the patient and/or guardian regarding the historical points, exam findings, and any diagnostic results supporting the discharge/admit diagnosis, lab results, to return to the emergency department if symptoms worsen or persist or if there are any questions or concerns that arise at home. Response to treatment: the patient's symptoms have mildly improved after treatment, and as a result, I will discharge patient. Special discussion: Based on the patient's Hx, exam, and Dx evaluation, there is no indication for emergent surgery or inpatient Tx. It is understood by the patient/guardian that if the Sx's persist or worsen they need to return immediately for re-evaluation. 11/15 14:40 Order name: CBC with Diff; Complete Time: 17:23 11/15 17:23 Interpretation: Normal except: HGB 15.4. 11/15 14:40 Order name: CMP; Complete Time: 17:23 cp 11/15 17:23 Interpretation: Normal except: CL 108; GFR 85; BILIT 1.2. 11/15 14:40 Order name: Lipase; Complete Time: 17:23 cp 11/15 14:40 Order name: Urinalysis w/ reflexes; Complete Time: 17:23 cp 11/15 17:24 Interpretation: Normal except: [facility] Extremely Turbid; UPROT TRACE; URBC 21-50. 11/15 14:40 Order name: Lactate w/ 2H reflex if indic.; Complete Time: 17:23 11/15 17:24 Interpretation: Reviewed. 11/15 14:40 Order name: CT Abd/Pelvis - IV Contrast Only; Complete Time: 17:23 11/15 17:24 Interpretation: Report reviewed. 11/15 14:40 Order name: XRAY Chest (1 view); Complete Time: 15:17 11/15 15:18 Interpretation: Report review. 11/15 14:40 Order name: IV Saline Lock; Complete Time: 16:06 11/15 14:40 Order name: Labs collected and sent; Complete Time: 16:06 11/15 17:24 Order name: PO challenge; Complete Time: 18:45 cp Administered Medications: 15:10 Drug: Ondansetron IVP 4 mg IVP once; over 2 minutes Route: IVP; Site: right antecubital;rs5 15:30 Follow up: Response: No adverse reaction rs5 16:12 Drug: NS 0.9% IV 500 ml 500 ml IV at 1 bolus once; to be given as a bolus over 60 ss minutes Volume: 500 ml; Route: IV; Rate: 1 bolus; Site: right wrist; 17:33 Follow up: Response: No adverse reaction; IV Status: Completed infusion; IV Intake: rs5 500ml Disposition Summary: 11/15/24 18:35 Discharge Ordered Notes: Location: Home cp Problem: new cp Symptoms: have improved cp Condition: Stable cp Diagnosis - Nausea cp - Abdominal pain, unspecified cp Followup: cp - With: Private Physician - When: 2 - 3 days - Reason: Worsening of condition Discharge Instructions: - Discharge Summary Sheet cp - Abdominal Pain, Adult cp - Nausea, Adult cp Forms: - Medication Reconciliation Form cp - Antibiotic Education cp - Prescription Opioid Use cp - Patient Portal Instructions cp - Leadership Thank You Letter cp Prescriptions: - Zofran 4 mg Oral Tablet - take 1 tablet ORAL route every 12 hours As needed; 20 tablet; Refills: 0, cp Product Selection Permitted Addendum: 11/21/2024 07:23 Co-signature as Attending Physician, Vladimir Osorio MD I agree with the assessment and c yin plan of care. Signatures: Dispatcher [employer] EDMS Vladimir Osorio MD MD cha Blanchard, Shelby, RN RN ss Vladimir Acosta PA PA Mina Campbell RN RN ll1 Armando Quinteros RN RN rs5 Corrections: (The following items were deleted from the chart) 11/15 14:40 14:40 Abdomen Pelvis W Con+CT.RAD.BRZ ordered. EDMS EDMS 14:40 14:40 Chest Single View+RAD.RAD.BRZ ordered. EDMS EDMS
--- NOTE | 2024-11-15 18:35 | ER ---
Nurse's Notes [facility] Name: Dasha Amaro Age: 84 yrs Sex: Female : 1940 Arrival Date: 11/15/2024 Time: 14:04 Bed 4 Private MD: Diagnosis: Nausea;Abdominal pain, unspecified Presentation: 11/15 14:23 Chief complaint: Patient states: Abdominal pain, nausea, not eating well for 4 days. ll1 Coronavirus screen: Client denies travel out of the [place] in the last 14 days. At this time, the client does not indicate any symptoms associated with coronavirus-19. Ebola Screen: Patient denies travel to an Ebola-affected area in the 21 days before illness onset. Initial Sepsis Screen: Does the patient meet any 2 criteria? No. Patient's initial sepsis screen is negative. Does the patient have a suspected source of infection? No. Patient's initial sepsis screen is negative. Risk Assessment: Do you want to hurt yourself or someone else? Patient reports no desire to harm self or others. Onset of symptoms was November 12, 2024. 14:23 Method Of Arrival: Ambulatory 1 14:23 Acuity: MACEY 3 ll1 Historical: - Allergies: 14:23 No Known Allergies; ll1 - PMHx: 14:23 adhd; Anxiety; Atrial fibrillation; Dementia; Depression; hemophilia aquired; LICHEN ll1 PLANUS; Rheumatoid Arthritis; - Immunization history:: Adult Immunizations up to date. - Infectious Disease History:: Denies. - Social history:: Smoking status: Patient denies any tobacco usage or history of. Screenin:22 [facility] ED Fall Risk Assessment (Adult) History of falling in the last 3 months, rs5 including since admission No falls in past 3 months (0 pts) Confusion or Disorientation No (0 pts) Intoxicated or Sedated No (0 pts) Impaired Gait No (0 pts) Mobility Assist Device Used No (0 pt) Altered Elimination No (0 pt) Score/Fall Risk Level 0 - 2 = Low Risk Oriented to surroundings, Maintained a safe environment. 14:22 Abuse screen: Denies threats or abuse. Nutritional screening: No deficits noted. rs5 Tuberculosis screening: No symptoms or risk factors identified. Assessment: 14:22 General: Appears in no apparent distress. uncomfortable, Behavior is calm, cooperative. rs5 General: Appears. Pain: Complains of pain in abdomen Pain currently is 3 out of 10 on a pain scale. Quality of pain is described as aching. Neuro: Level of Consciousness is awake, alert, obeys commands, Oriented to person, place, time, situation. Cardiovascular: Patient's skin is warm and dry. Respiratory: Airway is patent Respiratory effort is even, unlabored, Respiratory pattern is regular, symmetrical. GI: Abdomen is round non-distended, Bowel sounds present X 4 quads. Abd is soft and non tender X 4 quads. 14:22 : No signs and/or symptoms were reported regarding the genitourinary system. EENT: No rs5 signs and/or symptoms were reported regarding the EENT system. Derm: Skin is intact, Skin is pink, warm \T\ dry. Musculoskeletal: Range of motion: intact in all extremities. 15:48 Reassessment: Patient and/or family updated on plan of care and expected duration. Pain rs5 level reassessed. Patient is alert, oriented x 3, equal unlabored respirations, skin warm/dry/pink. 17:01 Reassessment: Patient and/or family updated on plan of care and expected duration. Pain rs5 level reassessed. Patient is alert, oriented x 3, equal unlabored respirations, skin warm/dry/pink. 18:23 Reassessment: Patient and/or family updated on plan of care and expected duration. Pain rs5 level reassessed. Patient is alert, oriented x 3, equal unlabored respirations, skin warm/dry/pink. 18:47 Reassessment: Patient and/or family updated on plan of care and expected duration. Pain rs5 level reassessed. Patient is alert, oriented x 3, equal unlabored respirations, skin warm/dry/pink. Vital Signs: 14:23 BP 145 / 69; Pulse 64; Resp 17; Temp 98.1; Pulse Ox 95% ; Weight 50.35 kg; Height 5 ft. ll1 2 in. ; 17:33 BP 137 / 77; Pulse 74; Resp 17; Pulse Ox 99% ; rs5 18:23 BP 144 / 82; Pulse 77; Resp 17; Pulse Ox 99% ; rs5 14:23 Body Mass Index 20.30 (50.35 kg, 157.48 cm) 1 ED Course: 14:07 Patient arrived in ED. al6 14:09 Vladimir Acosta PA is PHCP. cp 14:09 Vladimir Osorio MD is Attending Physician. cp 14:22 Patient has correct armband on for positive identification. Placed in gown. Bed in low rs5 position. Call light in reach. Side rails up X2. 14:22 No provider procedures requiring assistance completed. rs5 14:24 Triage completed. ll1 14:24 Arm band placed on Patient placed in an exam room, on a stretcher. ll1 14:48 XRAY Chest (1 view) In Process Unspecified. EDMS 15:19 Radiology exam delayed due to lab results not completed at this time. (BUN/Creatinine) nj IV insertion attempt and/or patient not having appropriate IV at this time. 15:47 Armando Quinteros, RN is Primary Nurse. rs5 16:00 Radiology exam delayed due to lab results not completed at this time. (BUN/Creatinine) nj IV insertion attempt and/or patient not having appropriate IV at this time. 16:07 Initial lab(s) drawn, by me, sent to lab. Inserted saline lock: 20 gauge in left wrist, em1 using aseptic technique. Blood collected. Flushed with 10 mL NS. 16:08 CBC with Diff Sent. em1 16:08 Lactate w/ 2H reflex if indic. Sent. em1 16:08 CMP Sent. em1 16:08 Lipase Sent. em1 16:58 CT Abd/Pelvis - IV Contrast Only In Process Unspecified. EDMS 19:07 IV discontinued, intact, bleeding controlled, No redness/swelling at site. Pressure rs5 dressing applied. Administered Medications: 15:10 Drug: Ondansetron IVP 4 mg IVP once; over 2 minutes Route: IVP; Site: right antecubital;rs5 15:30 Follow up: Response: No adverse reaction rs5 16:12 Drug: NS 0.9% IV 500 ml 500 ml IV at 1 bolus once; to be given as a bolus over 60 ss minutes Volume: 500 ml; Route: IV; Rate: 1 bolus; Site: right wrist; 17:33 Follow up: Response: No adverse reaction; IV Status: Completed infusion; IV Intake: rs5 500ml Medication: 17:33 VIS not applicable for this client. rs5 Intake: 17:33 IV: 500ml; Total: 500ml. rs5 Outcome: 18:35 Discharge ordered by . cp 19:07 Discharged to home ambulatory, rs5 19:07 Condition: stable 19:07 Discharge instructions given to patient, family, Instructed on discharge instructions, follow up and referral plans. Demonstrated understanding of instructions, follow-up care, 19:07 Patient left the ED. rs5 Signatures: Dispatcher [employer] EDJaime Reardon em1 Any Graves RN RN Vladimir Salinas PA PA Gumaro Yen Lynsay, RN RN ll1 Armando Quinteros RN RN rs5 Mary [email or web address] Corrections: (The following items were deleted from the chart) 17:34 17:10 Response: No adverse reaction; IV Status: Completed infusion; IV Intake: 999ml rs5rs5
[2024-11-16 03:12] VITALS: BP 144/82; TEMP 98.1; O2SAT 99
== END 2024-11-15 19:07 | disposition home or self-care (01) ==
LOC: ER 14:04
DX: R11.0 Nausea (principal); R10.12 Left upper quadrant pain; R10.11 Right upper quadrant pain
CPT/HCPCS: 96361; 85025; 81001; 36415; 83605; 83690; 80053; 74177; 71045; 96374; 99284; Q9967; J2405; J7040